=== PATIENT | male | born 1950 | race Caucasian/White ===

== ENCOUNTER 2017-08-23 10:00 | Inpatient (IN) | payer BC ==
[~2017-08-23] VITALS: Ht 175.3 cm; Wt 102.8 kg
[~2017-08-23 10:00] MED LIST: AMLO5TAB2 PO; FURO40TA4 PO; ISOS60TA24 PO; LISI40TA PO; METO-159 PO
[2017-08-23] MEDS ORDERED: SODIUM CHLORIDE 0.9% 1,000 ML IV ONE (10:23)
[2017-08-23 11:08] LABS: Basophils # (auto) 0.1 uL; Basophils % (auto) 0.6 % (0.0-2.0); Eosinophils # (auto) 0.3 uL; Hematocrit 35.5 % (41.0-53.0); Hemoglobin 11.7 g/dL (13.5-17.5); Lymphocytes # (auto) 2.4 uL; Lymphocytes % (auto) 18.2 % (10.0-50.0); Mean Corpuscular Hemoglobin 32.3 pg (28.0-32.0); Monocytes # (auto) 0.7 uL; Monocytes % (auto) 5.5 % (0.0-12.0); Neutrophils # (auto) 9.7 uL; Neutrophils % (auto) 73.7 % (37.0-80.0); Platelet Count (auto) 231 10^3/uL (140-450); Red Blood Cells 3.62 10^6/uL (4.5-5.90); Red Cell Distribution Width 15.1 % (11.8-14.3); White Blood Cell 13.2 10^3/uL (4.4-10.8)
[2017-08-23 11:21] LABS: INR 0.91 (0.9-1.15); Partial Thromboplastin Time 24.6 sec (22.64-33.71); Prothrombin Time 9.9 sec (9.37-12.3)
[2017-08-23 11:36] LABS: Albumin 3.5 g/dL (3.4-5.0); BUN/Creatinine Ratio 35.7; Bilirubin, Total 0.3 mg/dL (0.2-1.0); Calcium 8.5 mg/dL (8.5-10.1); Magnesium 2.7 mg/dL (1.6-2.6); Potassium 3.8 mmol/L (3.5-5.1); Total Protein 6.6 g/dL (6.4-8.2)
[2017-08-23] MEDS ORDERED: ALUM & MAG HYDROX-SIMETH LIQ(MAALOX) 30 ML PO ONE (12:45)
[2017-08-23] MEDS ORDERED: ONDANSETRON HCL 4 MG/2 ML VIAL IV PRN (12:45)
[2017-08-23] MEDS ORDERED: MORPHINE SULF INJ 2 MG/ML SYRINGE 1ML IV PRN (12:45)
[2017-08-23] MEDS ORDERED: MORPHINE SULFATE 4 MG/ML SYR/VIAL IV PRN ×3 (12:45→15:15)
[2017-08-23] MEDS ORDERED: NITROGLYCERIN 0.4 MG SL TAB SL PRN ×3 (12:45)
[2017-08-23] MEDS ORDERED: ZOLPIDEM TARTRATE 5 MG TAB PO PRN (12:45)
[2017-08-23] MEDS ORDERED: LORazepam 0.5 MG TAB PO PRN (12:45)
[2017-08-23] MEDS ORDERED: ACETAMINOPHEN 325 MG TAB PO PRN (12:45)
[2017-08-23] MEDS ORDERED: LISINOPRIL 20 MG TAB PO ONE (13:15)
[2017-08-23 13:22] LABS: Urine Bacteria NONE SEEN /hpf (None Seen); Urine Blood Negative /uL (Negative); Urine Specific Gravity 1.007 (1.001-1.035); Urine WBC <1 /hpf (0 - 3)
[2017-08-23] MEDS: SODIUM CHLOR 0.9% PF (SALINE LOCK) 10ML VIAL IV SCH ×2 (13:27→22:27)
[2017-08-23] MEDS ORDERED: SODIUM CHLOR 0.9% PF (SALINE LOCK) 10ML VIAL IV SCH (14:00)
[2017-08-23] MEDS ORDERED: CARVEDILOL 3.125 MG TAB PO SCH (22:00)
[2017-08-23] MEDS: FUROSEMIDE 20 MG TAB PO SCH (22:33)
[2017-08-23] MEDS: PRAVASTATIN SODIUM 20 MG TAB PO SCH (22:33)
[2017-08-23] MEDS: CARVEDILOL 3.125 MG TAB PO SCH (22:39)
[2017-08-24 05:50] LABS: Hematocrit 32.8 % (41.0-53.0); Hemoglobin 11.2 g/dL (13.5-17.5); Mean Corpuscular Hemoglobin 33.2 pg (28.0-32.0); Mean Corpuscular Hgb Conc. 34.1 g/dL (32.0-36.0); Mean Corpuscular Volume 97.2 fL (80.0-100.0); Platelet Count (auto) 194 10^3/uL (140-450); Red Blood Cells 3.38 10^6/uL (4.5-5.90); Red Cell Distribution Width 15.6 % (11.8-14.3)
[2017-08-24 06:01] LABS: Blast Cells 0; Metamyelocytes % 0; Myelocytes % 0; Promyelocytes % 0; Reactive Lymphocytes 0
[2017-08-24 06:09] LABS: Albumin 3.3 g/dL (3.4-5.0); Calcium 8.7 mg/dL (8.5-10.1); Magnesium 2.5 mg/dL (1.6-2.6)
[2017-08-24 06:16] LABS: Bilirubin, Total 0.5 mg/dL (0.2-1.0); Total Protein 5.8 g/dL (6.4-8.2)
[2017-08-24] MEDS: SODIUM CHLOR 0.9% PF (SALINE LOCK) 10ML VIAL IV SCH ×3 (06:29→22:00)
[2017-08-24 06:38] LABS: Band Neutrophils % (manual) 2; Basophils % (manual) 1 (0.0-2.0); Eosinophils % (manual) 2 (0-7); Lymphocytes % (manual) 26 (10.0-50.0); Monocytes % (manual) 3 (0-12)
[2017-08-24] MEDS: LEVOTHYROXINE SODIUM 50 MCG TAB PO SCH (07:04)
[2017-08-24] MEDS ORDERED: ENOXAPARIN SOD 100 MG/1 ML SYRINGE SC ONE (08:00)
[2017-08-24] MEDS: DOCUSATE SOD 100 MG CAP PO SCH (10:30)
[2017-08-24] MEDS: CARVEDILOL 3.125 MG TAB PO SCH ×2 (10:42→22:00)
[2017-08-24] MEDS: FUROSEMIDE 40 MG TAB PO SCH (10:43)
[2017-08-24] MEDS: LISINOPRIL 20 MG TAB PO SCH (10:43)
[2017-08-24] MEDS: ASPirin-EC 81 mg tab PO SCH (10:43)
[2017-08-24] MEDS: PANTOPRAZOLE 40 MG/10 ML VIAL IV SCH ×2 (12:21→22:00)
[2017-08-24 13:18] LABS: Basophils # (auto) 0.1 uL; Basophils % (auto) 0.5 % (0.0-2.0); Eosinophils # (auto) 0.2 uL; Eosinophils % (auto) 1.9 % (0.0-7.0); Hematocrit 33.7 % (41.0-53.0); Hemoglobin 11.4 g/dL (13.5-17.5); Lymphocytes # (auto) 2.5 uL; Lymphocytes % (auto) 23.1 % (10.0-50.0); Mean Corpuscular Hemoglobin 32.8 pg (28.0-32.0); Mean Corpuscular Hgb Conc. 33.9 g/dL (32.0-36.0); Mean Corpuscular Volume 96.6 fL (80.0-100.0); Monocytes # (auto) 0.6 uL; Neutrophils # (auto) 7.3 uL; Neutrophils % (auto) 68.5 % (37.0-80.0); Platelet Count (auto) 214 10^3/uL (140-450); Red Blood Cells 3.49 10^6/uL (4.5-5.90); Red Cell Distribution Width 15.8 % (11.8-14.3); White Blood Cell 10.7 10^3/uL (4.4-10.8)
[2017-08-24 18:06] VITALS: BP 109/59
[2017-08-24] MEDS ORDERED: HEPARIN DRIP/D5W 100UNITS/ML 250 ML IV SCH (18:45)
[2017-08-24 18:58] LABS: Basophils # (auto) 0.1 uL; Basophils % (auto) 0.7 % (0.0-2.0); Eosinophils # (auto) 0.2 uL; Eosinophils % (auto) 2.2 % (0.0-7.0); Hematocrit 34.7 % (41.0-53.0); Hemoglobin 11.7 g/dL (13.5-17.5); Lymphocytes # (auto) 2.5 uL; Lymphocytes % (auto) 24.3 % (10.0-50.0); Mean Corpuscular Hgb Conc. 33.9 g/dL (32.0-36.0); Mean Corpuscular Volume 97.6 fL (80.0-100.0); Monocytes # (auto) 0.8 uL; Monocytes % (auto) 7.5 % (0.0-12.0); Neutrophils # (auto) 6.8 uL; Neutrophils % (auto) 65.3 % (37.0-80.0); Nucleated Red Blood Cells % 0.1 %; Platelet Count (auto) 220 10^3/uL (140-450); Red Blood Cells 3.56 10^6/uL (4.5-5.90); Red Cell Distribution Width 16.1 % (11.8-14.3); White Blood Cell 10.5 10^3/uL (4.4-10.8)
[2017-08-24 19:06] LABS: INR 0.96 (0.9-1.15); Partial Thromboplastin Time 27.8 sec (22.64-33.71); Prothrombin Time 10.5 sec (9.37-12.3)
[2017-08-24 19:56] VITALS: BP 126/63
[2017-08-24] MEDS: PRAVASTATIN SODIUM 20 MG TAB PO SCH (22:00)
[2017-08-24] MEDS: FUROSEMIDE 20 MG TAB PO SCH (22:00)
[2017-08-25] VITALS (7 sets, daily range): BP systolic 89–136; BP diastolic 46–67
[2017-08-25 00:59] LABS: Basophils # (auto) 0.1 uL; Basophils % (auto) 0.6 % (0.0-2.0); Eosinophils # (auto) 0.3 uL; Eosinophils % (auto) 2.5 % (0.0-7.0); Hematocrit 30.5 % (41.0-53.0); Hemoglobin 10.3 g/dL (13.5-17.5); Lymphocytes # (auto) 3.1 uL; Lymphocytes % (auto) 26.8 % (10.0-50.0); Mean Corpuscular Hemoglobin 32.9 pg (28.0-32.0); Mean Corpuscular Hgb Conc. 33.6 g/dL (32.0-36.0); Mean Corpuscular Volume 97.7 fL (80.0-100.0); Monocytes # (auto) 0.7 uL; Monocytes % (auto) 6.3 % (0.0-12.0); Neutrophils # (auto) 7.4 uL; Neutrophils % (auto) 63.8 % (37.0-80.0); Nucleated Red Blood Cells % 0.1 %; Platelet Count (auto) 190 10^3/uL (140-450); Red Blood Cells 3.12 10^6/uL (4.5-5.90); Red Cell Distribution Width 15.5 % (11.8-14.3); White Blood Cell 11.6 10^3/uL (4.4-10.8)
[2017-08-25 01:11] LABS: Partial Thromboplastin Time 42.9 sec (22.64-33.71); Prothrombin Time 10.9 sec (9.37-12.3)
[2017-08-25] MEDS ORDERED: LISI-275 PO (04:08)
[2017-08-25] MEDS ORDERED: ALLO300T2 PO (04:08)
[2017-08-25] MEDS ORDERED: LEVO50TA7 PO (04:08)
[2017-08-25] MEDS ORDERED: CLOP75TA28 PO (04:08)
[2017-08-25] MEDS ORDERED: CARV3.1240 PO (04:08)
[2017-08-25] MEDS ORDERED: FURO40TA4 PO (04:08)
[2017-08-25] MEDS ORDERED: PRAV20TA3 PO (04:08)
[2017-08-25 05:41] LABS: Basophils # (auto) 0.1 uL; Basophils % (auto) 0.6 % (0.0-2.0); Eosinophils # (auto) 0.4 uL; Eosinophils % (auto) 3.4 % (0.0-7.0); Hematocrit 30.9 % (41.0-53.0); Hemoglobin 10.6 g/dL (13.5-17.5); Lymphocytes % (auto) 27.7 % (10.0-50.0); Mean Corpuscular Hemoglobin 33.3 pg (28.0-32.0); Mean Corpuscular Hgb Conc. 34.1 g/dL (32.0-36.0); Mean Corpuscular Volume 97.5 fL (80.0-100.0); Monocytes # (auto) 0.9 uL; Monocytes % (auto) 8.5 % (0.0-12.0); Neutrophils # (auto) 6.5 uL; Neutrophils % (auto) 59.8 % (37.0-80.0); Platelet Count (auto) 193 10^3/uL (140-450); Red Blood Cells 3.17 10^6/uL (4.5-5.90); Red Cell Distribution Width 15.7 % (11.8-14.3); White Blood Cell 10.9 10^3/uL (4.4-10.8)
[2017-08-25] MEDS: SODIUM CHLOR 0.9% PF (SALINE LOCK) 10ML VIAL IV SCH ×3 (05:50→21:54)
[2017-08-25 05:59] LABS: BUN/Creatinine Ratio 21.3; Calcium 8.6 mg/dL (8.5-10.1)
[2017-08-25] MEDS: LEVOTHYROXINE SODIUM 50 MCG TAB PO SCH (06:36)
[2017-08-25 09:34] LABS: INR 0.98 (0.9-1.15); Partial Thromboplastin Time 30.3 sec (22.64-33.71); Prothrombin Time 10.7 sec (9.37-12.3)
[2017-08-25] MEDS: DOCUSATE SOD 100 MG CAP PO SCH (10:00)
[2017-08-25] MEDS: CARVEDILOL 3.125 MG TAB PO SCH ×2 (10:00→21:56)
[2017-08-25] MEDS ORDERED: fentaNYL CITRATE 100 MCG/2 ML VL ONE (11:10)
[2017-08-25] MEDS ORDERED: MIDAZOLAM HCL 1MG/1ML-2 ML VIAL ONE (11:10)
[2017-08-25] MEDS ORDERED: SODIUM CHLORIDE LOCK 10 ML ONE (11:10)
[2017-08-25] MEDS ORDERED: PROPOFOL 10 MG/ML 20 ML IV ONE (11:10)
[2017-08-25] MEDS ORDERED: ONDANSETRON HCL 4 MG/2 ML VIAL ONE (11:10)
[2017-08-25] MEDS ORDERED: METOCLOPRAMIDE HCL 5MG/ml INJ 2ml VIAL IV ONE (11:45)
[2017-08-25] MEDS ORDERED: MORPHINE SULFATE 4 MG/ML SYR/VIAL IV ONE (12:00)
[2017-08-25] MEDS ORDERED: SODIUM CHLORIDE 0.9% 1,000 ML IV ONE (12:45)
[2017-08-25] MEDS: FUROSEMIDE 40 MG TAB PO SCH (13:40)
[2017-08-25] MEDS: SULFAMETHOX W/TRIMETH(800/160MG) DS TAB PO SCH ×2 (13:40→21:54)
[2017-08-25] MEDS: ASPirin-EC 81 mg tab PO SCH (13:41)
[2017-08-25] MEDS: SODIUM CHLORIDE 0.9% 500 ML IV SCH (14:00)
[2017-08-25 14:06] LABS: Basophils # (auto) 0.1 uL; Basophils % (auto) 0.6 % (0.0-2.0); Eosinophils # (auto) 0.2 uL; Eosinophils % (auto) 2.4 % (0.0-7.0); Hemoglobin 10.7 g/dL (13.5-17.5); Lymphocytes # (auto) 2.4 uL; Lymphocytes % (auto) 25.2 % (10.0-50.0); Mean Corpuscular Hemoglobin 32.7 pg (28.0-32.0); Mean Corpuscular Hgb Conc. 33.5 g/dL (32.0-36.0); Mean Corpuscular Volume 97.8 fL (80.0-100.0); Monocytes # (auto) 0.5 uL; Monocytes % (auto) 5.2 % (0.0-12.0); Neutrophils # (auto) 6.3 uL; Neutrophils % (auto) 66.6 % (37.0-80.0); Platelet Count (auto) 185 10^3/uL (140-450); Red Blood Cells 3.27 10^6/uL (4.5-5.90); Red Cell Distribution Width 15.4 % (11.8-14.3); White Blood Cell 9.5 10^3/uL (4.4-10.8)
[2017-08-25] MEDS ORDERED: OPTISON 3ml Vial for INJ IV ONE (14:49)
[2017-08-25] MEDS: LISINOPRIL 20 MG TAB PO SCH (15:33)
[2017-08-25] MEDS: ACETYLCYSTEINE ORAL for CIN 20%(200MG/ML) 4ML PO SCH ×2 (15:45→22:05)
[2017-08-25] MEDS: PRAVASTATIN SODIUM 20 MG TAB PO SCH (21:55)
[2017-08-25] MEDS: FUROSEMIDE 20 MG TAB PO SCH (21:55)
[2017-08-25] MEDS: PANTOPRAZOLE 40 MG TAB PO SCH (22:06)
[2017-08-26 03:52] VITALS: BP 132/75
[2017-08-26 05:21] LABS: Basophils # (auto) 0 uL; Basophils % (auto) 0.4 % (0.0-2.0); Eosinophils # (auto) 0.3 uL; Eosinophils % (auto) 3.4 % (0.0-7.0); Hematocrit 32.6 % (41.0-53.0); Hemoglobin 11.2 g/dL (13.5-17.5); Lymphocytes # (auto) 2.3 uL; Lymphocytes % (auto) 24.5 % (10.0-50.0); Mean Corpuscular Hemoglobin 33.1 pg (28.0-32.0); Mean Corpuscular Hgb Conc. 34.2 g/dL (32.0-36.0); Mean Corpuscular Volume 96.8 fL (80.0-100.0); Monocytes # (auto) 0.7 uL; Monocytes % (auto) 7.3 % (0.0-12.0); Neutrophils # (auto) 6.1 uL; Neutrophils % (auto) 64.4 % (37.0-80.0); Nucleated Red Blood Cells % 0.1 %; Platelet Count (auto) 186 10^3/uL (140-450); Red Blood Cells 3.37 10^6/uL (4.5-5.90); Red Cell Distribution Width 15.7 % (11.8-14.3); White Blood Cell 9.5 10^3/uL (4.4-10.8)
[2017-08-26 05:40] LABS: Calcium 8.6 mg/dL (8.5-10.1); Magnesium 2.3 mg/dL (1.6-2.6); Potassium 3.6 mmol/L (3.5-5.1)
[2017-08-26] MEDS: SODIUM CHLOR 0.9% PF (SALINE LOCK) 10ML VIAL IV SCH ×3 (06:04→21:42)
[2017-08-26] MEDS: LEVOTHYROXINE SODIUM 50 MCG TAB PO SCH (06:27)
[2017-08-26] MEDS ORDERED: IODIXANOL 320MG/ML 100ML BTL IV ONE (07:14)
[2017-08-26] MEDS ORDERED: LIDOCAINE 2%HCL (LOCAL ANESTH.) INJ 20ML MDV ONE (07:14)
[2017-08-26] MEDS ORDERED: MIDAZOLAM HCL 1MG/1ML-2 ML VIAL ONE (08:05)
[2017-08-26] MEDS ORDERED: fentaNYL CITRATE 100 MCG/2 ML VL ONE (08:05)
[2017-08-26] MEDS ORDERED: SODIUM CHL 0.9% 50 ML ONE ×3 (08:05→08:47)
[2017-08-26] MEDS ORDERED: VERAPAMIL 2.5MG/ML INJ 2ML VIAL IV ONE (08:06)
[2017-08-26] MEDS ORDERED: ANGIOMAX 250 MG VIAL IV ONE ×2 (08:07→08:47)
[2017-08-26] MEDS ORDERED: EPINEPHrine HCL 1 MG/10 ML SYRG ONE (08:34)
[2017-08-26] MEDS ORDERED: ATROPINE SULF 0.5 MG/5ML SYR ONE (08:34)
[2017-08-26] MEDS ORDERED: EPTIFIBATIDE INJ (2MG/ML) 10ML VIAL IV ONE (08:36)
[2017-08-26] MEDS ORDERED: TICAGRELOR 90 MG TAB ONE (08:44)
[2017-08-26] MEDS ORDERED: ASPirin 325 MG TAB ONE (08:48)
[2017-08-26 09:28] VITALS: BP 137/79
[2017-08-26] MEDS: SODIUM CHLORIDE 0.9% 500 ML IV SCH ×3 (09:45→21:42)
[2017-08-26] MEDS: ASPirin-EC 81 mg tab PO SCH (09:58)
[2017-08-26] MEDS ORDERED: ASPirin 81 mg TAB PO SCH (10:00)
[2017-08-26] MEDS: LISINOPRIL 20 MG TAB PO SCH (10:04)
[2017-08-26] MEDS: CARVEDILOL 3.125 MG TAB PO SCH ×2 (10:05→21:43)
[2017-08-26] MEDS: SULFAMETHOX W/TRIMETH(800/160MG) DS TAB PO SCH ×2 (10:05→21:43)
[2017-08-26] MEDS: FUROSEMIDE 40 MG TAB PO SCH (10:05)
[2017-08-26] MEDS: DOCUSATE SOD 100 MG CAP PO SCH (10:06)
[2017-08-26] MEDS: PANTOPRAZOLE 40 MG TAB PO SCH ×2 (10:07→21:43)
[2017-08-26] MEDS: ACETYLCYSTEINE ORAL for CIN 20%(200MG/ML) 4ML PO SCH ×2 (11:13→21:44)
[2017-08-26 12:00] VITALS: BP 99/60
[2017-08-26 16:00] VITALS: BP 117/58
[2017-08-26] MEDS ORDERED: CLOPIDOGREL 300 MG TAB PO ONE (18:00)
[2017-08-26 19:48] VITALS: BP 103/60
[2017-08-26] MEDS: PRAVASTATIN SODIUM 20 MG TAB PO SCH (21:43)
[2017-08-26] MEDS: FUROSEMIDE 20 MG TAB PO SCH (21:45)
[2017-08-27] VITALS: BP 84/56
[2017-08-27 04:06] VITALS: BP 110/67
[2017-08-27 05:12] LABS: Basophils # (auto) 0 uL; Basophils % (auto) 0.3 % (0.0-2.0); Eosinophils # (auto) 0.3 uL; Eosinophils % (auto) 3.6 % (0.0-7.0); Hematocrit 31.2 % (41.0-53.0); Hemoglobin 10.3 g/dL (13.5-17.5); Lymphocytes # (auto) 1.6 uL; Mean Corpuscular Hemoglobin 32.7 pg (28.0-32.0); Mean Corpuscular Hgb Conc. 33.2 g/dL (32.0-36.0); Mean Corpuscular Volume 98.6 fL (80.0-100.0); Monocytes # (auto) 0.6 uL; Monocytes % (auto) 7.4 % (0.0-12.0); Neutrophils # (auto) 5.6 uL; Neutrophils % (auto) 68.7 % (37.0-80.0); Platelet Count (auto) 169 10^3/uL (140-450); Red Blood Cells 3.16 10^6/uL (4.5-5.90); White Blood Cell 8.2 10^3/uL (4.4-10.8)
[2017-08-27 05:34] LABS: BUN/Creatinine Ratio 15.9; Calcium 8.1 mg/dL (8.5-10.1); Magnesium 2.2 mg/dL (1.6-2.6); Potassium 3.7 mmol/L (3.5-5.1)
[2017-08-27] MEDS: SODIUM CHLORIDE 0.9% 500 ML IV SCH (05:46)
[2017-08-27] MEDS: SODIUM CHLOR 0.9% PF (SALINE LOCK) 10ML VIAL IV SCH ×3 (05:46→21:58)
[2017-08-27] MEDS: LEVOTHYROXINE SODIUM 50 MCG TAB PO SCH (06:35)
[2017-08-27 08:00] VITALS: BP 116/72
[2017-08-27] MEDS: ACETYLCYSTEINE ORAL for CIN 20%(200MG/ML) 4ML PO SCH (10:00)
[2017-08-27] MEDS: LISINOPRIL 20 MG TAB PO SCH (10:00)
[2017-08-27] MEDS: SULFAMETHOX W/TRIMETH(800/160MG) DS TAB PO SCH ×2 (11:10→21:58)
[2017-08-27] MEDS: FUROSEMIDE 40 MG TAB PO SCH (11:11)
[2017-08-27] MEDS: CLOPIDOGREL BISULFATE 75 MG TAB PO SCH (11:11)
[2017-08-27] MEDS: CARVEDILOL 3.125 MG TAB PO SCH ×2 (11:12→21:59)
[2017-08-27] MEDS: DOCUSATE SOD 100 MG CAP PO SCH ×2 (11:12→21:58)
[2017-08-27] MEDS: ASPirin-EC 81 mg tab PO SCH (11:12)
[2017-08-27] MEDS: PANTOPRAZOLE 40 MG TAB PO SCH ×2 (11:12→21:58)
[2017-08-27 12:00] VITALS: BP 102/67
[2017-08-27] MEDS ORDERED: hydrALAZINE HCL 20 MG/ML VL IV PRN (13:45)
[2017-08-27] MEDS ORDERED: POLYETHYLENE GLYCOL 17 GM PWDR PO PRN (14:00)
[2017-08-27 16:00] VITALS: BP 108/65
[2017-08-27 20:00] VITALS: BP 117/68
[2017-08-27] MEDS: PRAVASTATIN SODIUM 20 MG TAB PO SCH (21:58)
[2017-08-28 06:00] LABS: Basophils # (auto) 0 uL; Basophils % (auto) 0.4 % (0.0-2.0); Eosinophils # (auto) 0.3 uL; Eosinophils % (auto) 4.1 % (0.0-7.0); Hematocrit 28.9 % (41.0-53.0); Hemoglobin 9.9 g/dL (13.5-17.5); Lymphocytes # (auto) 1.6 uL; Lymphocytes % (auto) 21.9 % (10.0-50.0); Mean Corpuscular Hemoglobin 33.4 pg (28.0-32.0); Mean Corpuscular Hgb Conc. 34.3 g/dL (32.0-36.0); Mean Corpuscular Volume 97.4 fL (80.0-100.0); Monocytes # (auto) 0.6 uL; Monocytes % (auto) 8.6 % (0.0-12.0); Neutrophils # (auto) 4.7 uL; Nucleated Red Blood Cells % 0.1 %; Platelet Count (auto) 163 10^3/uL (140-450); Red Blood Cells 2.97 10^6/uL (4.5-5.90); Red Cell Distribution Width 16.3 % (11.8-14.3); White Blood Cell 7.2 10^3/uL (4.4-10.8)
[2017-08-28 06:06] LABS: BUN/Creatinine Ratio 13.5; Calcium 8.5 mg/dL (8.5-10.1); Potassium 4.9 mmol/L (3.5-5.1)
[2017-08-28] MEDS: SODIUM CHLOR 0.9% PF (SALINE LOCK) 10ML VIAL IV SCH ×2 (06:11→09:48)
[2017-08-28] MEDS: DOCUSATE SOD 100 MG CAP PO SCH ×3 (06:11→22:00)
[2017-08-28] MEDS: LEVOTHYROXINE SODIUM 50 MCG TAB PO SCH (06:36)
[2017-08-28 08:00] VITALS: BP 122/65
[2017-08-28] MEDS: SULFAMETHOX W/TRIMETH(800/160MG) DS TAB PO SCH ×2 (09:47→22:03)
[2017-08-28] MEDS: FUROSEMIDE 40 MG TAB PO SCH (09:48)
[2017-08-28] MEDS: PANTOPRAZOLE 40 MG TAB PO SCH ×2 (09:48→22:03)
[2017-08-28] MEDS: ASPirin-EC 81 mg tab PO SCH (09:48)
[2017-08-28] MEDS: CARVEDILOL 3.125 MG TAB PO SCH ×2 (09:48→22:03)
[2017-08-28] MEDS: CLOPIDOGREL BISULFATE 75 MG TAB PO SCH (09:48)
[2017-08-28] MEDS: LISINOPRIL 20 MG TAB PO SCH (09:48)
[2017-08-28 13:00] VITALS: BP 102/69
[2017-08-28] MEDS ORDERED: LACTULOSE 20Gm/30ML SOLN PO ONE (13:00)
[2017-08-28] MEDS: MILK OF MAGNESIA 30ML SUSP PO SCH (13:00)
[2017-08-28 16:47] VITALS: BP 117/66
[2017-08-28] MEDS: PRAVASTATIN SODIUM 20 MG TAB PO SCH (22:03)
[2017-08-29 04:27] VITALS: BP 102/63
[2017-08-29] MEDS: DOCUSATE SOD 100 MG CAP PO SCH ×3 (06:00→22:00)
[2017-08-29] MEDS: LEVOTHYROXINE SODIUM 50 MCG TAB PO SCH (06:55)
[2017-08-29] MEDS: SODIUM CHLOR 0.9% PF (SALINE LOCK) 10ML VIAL IV SCH ×4 (06:56→21:56)
[2017-08-29 08:00] VITALS: BP 95/63
[2017-08-29] MEDS: MILK OF MAGNESIA 30ML SUSP PO SCH (10:00)
[2017-08-29] MEDS: ASPirin-EC 81 mg tab PO SCH (10:14)
[2017-08-29] MEDS: CLOPIDOGREL BISULFATE 75 MG TAB PO SCH (10:14)
[2017-08-29] MEDS: PANTOPRAZOLE 40 MG TAB PO SCH ×2 (10:15→21:56)
[2017-08-29] MEDS: CARVEDILOL 3.125 MG TAB PO SCH ×2 (10:16→21:55)
[2017-08-29] MEDS: FUROSEMIDE 40 MG TAB PO SCH (10:17)
[2017-08-29] MEDS: SULFAMETHOX W/TRIMETH(800/160MG) DS TAB PO SCH ×2 (10:18→22:02)
[2017-08-29] MEDS: LISINOPRIL 20 MG TAB PO SCH (10:18)
[2017-08-29 12:00] VITALS: BP 112/54
[2017-08-29 16:56] VITALS: BP 103/69
[2017-08-29] MEDS ORDERED: SODIUM CHLORIDE 0.9% 500 ML IV ONE (17:46)
[2017-08-29] MEDS ORDERED: SODIUM CHLORIDE 0.9% 1,000 ML IV SCH (17:46)
[2017-08-29] MEDS: PRAVASTATIN SODIUM 20 MG TAB PO SCH (21:54)
[2017-08-29 22:11] VITALS: BP 102/61
[2017-08-30] MEDS: SODIUM CHLORIDE 0.9% 1,000 ML IV SCH ×2 (00:31→10:00)
[2017-08-30 05:28] VITALS: BP 111/66
[2017-08-30] MEDS: DOCUSATE SOD 100 MG CAP PO SCH ×3 (06:00→22:37)
[2017-08-30] MEDS: SODIUM CHLOR 0.9% PF (SALINE LOCK) 10ML VIAL IV SCH ×3 (06:07→22:40)
[2017-08-30] MEDS: LEVOTHYROXINE SODIUM 50 MCG TAB PO SCH (06:09)
[2017-08-30 06:18] LABS: Basophils # (auto) 0.1 uL; Basophils % (auto) 0.8 % (0.0-2.0); Eosinophils # (auto) 0.3 uL; Eosinophils % (auto) 4.7 % (0.0-7.0); Hematocrit 31.1 % (41.0-53.0); Hemoglobin 10.5 g/dL (13.5-17.5); Lymphocytes # (auto) 1.5 uL; Lymphocytes % (auto) 21.3 % (10.0-50.0); Mean Corpuscular Hemoglobin 32.9 pg (28.0-32.0); Mean Corpuscular Hgb Conc. 33.6 g/dL (32.0-36.0); Mean Corpuscular Volume 97.7 fL (80.0-100.0); Monocytes # (auto) 0.6 uL; Monocytes % (auto) 8.1 % (0.0-12.0); Neutrophils # (auto) 4.6 uL; Neutrophils % (auto) 65.1 % (37.0-80.0); Platelet Count (auto) 193 10^3/uL (140-450); Red Blood Cells 3.18 10^6/uL (4.5-5.90); Red Cell Distribution Width 15.9 % (11.8-14.3); White Blood Cell 7.1 10^3/uL (4.4-10.8)
[2017-08-30 06:33] LABS: INR 0.94 (0.9-1.15); Partial Thromboplastin Time 25.3 sec (22.64-33.71); Prothrombin Time 10.2 sec (9.37-12.3)
[2017-08-30 06:37] LABS: Calcium 8.3 mg/dL (8.5-10.1); Magnesium 2.6 mg/dL (1.6-2.6); Potassium 4.7 mmol/L (3.5-5.1)
[2017-08-30 06:39] LABS: BUN/Creatinine Ratio 17.2
[2017-08-30] MEDS ORDERED: LIDOCAINE 2%HCL (LOCAL ANESTH.) INJ 20ML MDV ONE (07:13)
[2017-08-30] MEDS ORDERED: IODIXANOL 320MG/ML 100ML BTL IV ONE ×2 (07:13→07:43)
[2017-08-30] MEDS ORDERED: fentaNYL CITRATE 100 MCG/2 ML VL ONE (07:31)
[2017-08-30] MEDS ORDERED: ANGIOMAX 250 MG VIAL IV ONE (07:31)
[2017-08-30] MEDS ORDERED: MIDAZOLAM HCL 1MG/1ML-2 ML VIAL ONE (07:31)
[2017-08-30] MEDS ORDERED: SODIUM CHL 0.9% 50 ML ONE (07:31)
[2017-08-30 08:01] VITALS: BP 104/60
[2017-08-30] MEDS ORDERED: ceFAZolin 1GM/50ML 50 ML IV ONE (08:24)
[2017-08-30] MEDS: CLOPIDOGREL BISULFATE 75 MG TAB PO SCH (08:44)
[2017-08-30] MEDS: ASPirin-EC 81 mg tab PO SCH (08:53)
[2017-08-30] MEDS ORDERED: ASPirin 81 mg TAB PO ONE (09:00)
[2017-08-30] MEDS: FUROSEMIDE 40 MG TAB PO SCH (10:00)
[2017-08-30] MEDS: LISINOPRIL 20 MG TAB PO SCH (10:00)
[2017-08-30] MEDS ORDERED: MILK OF MAGNESIA 30ML SUSP PO PRN (10:00)
[2017-08-30 12:00] VITALS: BP 117/72
[2017-08-30] MEDS: PANTOPRAZOLE 40 MG TAB PO SCH ×2 (12:24→22:37)
[2017-08-30] MEDS: CARVEDILOL 3.125 MG TAB PO SCH ×2 (12:24→22:38)
[2017-08-30] MEDS: SULFAMETHOX W/TRIMETH(800/160MG) DS TAB PO SCH ×2 (12:24→22:37)
[2017-08-30] MEDS ORDERED: SODIUM CHLORIDE 0.9% 500 ML IV ONE ×2 (17:00)
[2017-08-30] MEDS ORDERED: ZOLPIDEM TARTRATE 5 MG TAB PO PRN (17:00)
[2017-08-30] MEDS ORDERED: LORazepam 0.5 MG TAB PO PRN (17:00)
[2017-08-30 17:01] VITALS: BP 104/61
[2017-08-30] MEDS ORDERED: FURO40TA4 PO (17:07)
[2017-08-30] MEDS ORDERED: PRAV20TA3 PO (17:07)
[2017-08-30] MEDS ORDERED: PANT40T PO (17:07)
[2017-08-30] MEDS ORDERED: CLOP75TA28 PO (17:07)
[2017-08-30] MEDS ORDERED: MOMLQ PO (17:07)
[2017-08-30] MEDS ORDERED: ASP81EC PO (17:07)
[2017-08-30] MEDS ORDERED: SULF-92 PO (17:07)
[2017-08-30 22:00] VITALS: BP 101/57
[2017-08-30] MEDS: PRAVASTATIN SODIUM 20 MG TAB PO SCH (22:37)
[2017-08-31 05:14] VITALS: BP 115/68
[2017-08-31 06:00] LABS: Basophils # (auto) 0 uL; Basophils % (auto) 0.5 % (0.0-2.0); Eosinophils # (auto) 0.3 uL; Eosinophils % (auto) 3.8 % (0.0-7.0); Hematocrit 29.5 % (41.0-53.0); Lymphocytes # (auto) 1.3 uL; Lymphocytes % (auto) 18.1 % (10.0-50.0); Mean Corpuscular Hemoglobin 33.2 pg (28.0-32.0); Mean Corpuscular Volume 97.6 fL (80.0-100.0); Monocytes # (auto) 0.6 uL; Neutrophils # (auto) 4.8 uL; Neutrophils % (auto) 68.6 % (37.0-80.0); Nucleated Red Blood Cells % 0.1 %; Platelet Count (auto) 181 10^3/uL (140-450); Red Blood Cells 3.02 10^6/uL (4.5-5.90); Red Cell Distribution Width 16.1 % (11.8-14.3)
[2017-08-31 06:11] LABS: BUN/Creatinine Ratio 15.8; Calcium 8.3 mg/dL (8.5-10.1); Potassium 4.8 mmol/L (3.5-5.1)
[2017-08-31] MEDS: DOCUSATE SOD 100 MG CAP PO SCH (06:23)
[2017-08-31] MEDS: LEVOTHYROXINE SODIUM 50 MCG TAB PO SCH (06:23)
[2017-08-31] MEDS: SODIUM CHLOR 0.9% PF (SALINE LOCK) 10ML VIAL IV SCH (06:25)
[2017-08-31 08:00] VITALS: BP 112/64
[2017-08-31] MEDS: LISINOPRIL 20 MG TAB PO SCH (08:57)
[2017-08-31] MEDS: ASPirin-EC 81 mg tab PO SCH (09:37)
[2017-08-31] MEDS: PANTOPRAZOLE 40 MG TAB PO SCH (09:38)
[2017-08-31] MEDS: SULFAMETHOX W/TRIMETH(800/160MG) DS TAB PO SCH (09:38)
[2017-08-31] MEDS: CLOPIDOGREL BISULFATE 75 MG TAB PO SCH (09:38)
[2017-08-31] MEDS: FUROSEMIDE 40 MG TAB PO SCH (09:40)
[2017-08-31] MEDS: CARVEDILOL 3.125 MG TAB PO SCH (09:40)
[2017-08-31 10:53] VITALS: BP 112/64
[2017-08-31 12:10] VITALS: BP 146/80
== END 2017-08-31 12:30 | disposition home health service (06) | DRG 246 ==
LOC: ER 10:00 → TELE 10:01 → DOU IN ICU 08-24 17:00 → CENTRAL 08-28 11:22 → TELE-CENTR 08-29 02:01
PROVIDERS: ADMIT Internal Medicine; ATTEND Internal Medicine
PROC: 027035Z Dilation of Coronary Artery, One Artery with Two Drug-eluting Intraluminal Devices, Percutaneous Approach (ICD-10-PCS; 2017-08-23)
PROC: 0DJ08ZZ Inspection of Upper Intestinal Tract, Via Natural or Artificial Opening Endoscopic (ICD-10-PCS; 2017-08-25)
PROC: 027035Z Dilation of Coronary Artery, One Artery with Two Drug-eluting Intraluminal Devices, Percutaneous Approach (ICD-10-PCS; principal; 2017-08-26)
PROC: 4A023N7 Measurement of Cardiac Sampling and Pressure, Left Heart, Percutaneous Approach (ICD-10-PCS; 2017-08-26)
PROC: B2111ZZ Fluoroscopy of Multiple Coronary Arteries using Low Osmolar Contrast (ICD-10-PCS; 2017-08-26)
PROC: 4A023N7 Measurement of Cardiac Sampling and Pressure, Left Heart, Percutaneous Approach (ICD-10-PCS; 2017-08-30)
PROC: B2111ZZ Fluoroscopy of Multiple Coronary Arteries using Low Osmolar Contrast (ICD-10-PCS; 2017-08-30)
PROC: B41F1ZZ Fluoroscopy of Right Lower Extremity Arteries using Low Osmolar Contrast (ICD-10-PCS; 2017-08-30)
DX: I21.4 Non-ST elevation (NSTEMI) myocardial infarction (principal); I50.43 Acute on chronic combined systolic (congestive) and diastolic (congestive) heart failure; I42.9 Cardiomyopathy, unspecified; K29.71 Gastritis, unspecified, with bleeding; E66.01 Morbid (severe) obesity due to excess calories; E83.41 Hypermagnesemia; N18.3 Chronic kidney disease, stage 3 (moderate); I13.0 Hypertensive heart and chronic kidney disease with heart failure and stage 1 through stage 4 chronic kidney disease, or unspecified chronic kidney disease; N39.0 Urinary tract infection, site not specified; B95.7 Other staphylococcus as the cause of diseases classified elsewhere; D63.8 Anemia in other chronic diseases classified elsewhere; E03.9 Hypothyroidism, unspecified; I25.119 Atherosclerotic heart disease of native coronary artery with unspecified angina pectoris; E78.5 Hyperlipidemia, unspecified; I25.2 Old myocardial infarction; I49.3 Ventricular premature depolarization; K59.09 Other constipation; M10.9 Gout, unspecified; Z68.37 Body mass index [BMI] 37.0-37.9, adult; Z79.02 Long term (current) use of antithrombotics/antiplatelets; Z79.82 Long term (current) use of aspirin; M19.90 Unspecified osteoarthritis, unspecified site; M54.9 Dorsalgia, unspecified; Z79.899 Other long term (current) drug therapy
CPT/HCPCS: 36415; 43235; 71045; 80048; 80053; 80061; 81001; 83735; 83880; 84484; 85007; 85025; 85027; 85610; 85730; 86850; 86900; 86901; 87081; 87086; 87088; 87186; 92928; 93005; 93306; 93458; 96360; 99152; 99153; 99291; C1874; C1887; C9113; J0461; J0690; J2250; J2405; J2704; Q9956; Q9967

== ENCOUNTER 2020-07-07 09:38 | Inpatient (IN) | payer BC ==
[~2020-07-07] VITALS: Ht 172.7 cm; Wt 144.0 kg
[~2020-07-07 09:38] MED LIST changes: +ALLO300T2 PO; -AMLO5TAB2 PO; +ASPI-394 PO; +CARV3.1240 PO; +CLOP75TA28 PO; -ISOS60TA24 PO; +LEVO50TA7 PO; +LISI-275 PO; -LISI40TA PO; -METO-159 PO; +MOMLQ PO; +PANT40T PO; +PRAV20TA3 PO; +SULF-92 PO
[2020-07-07] MEDS ORDERED: ACETAMINOPHEN 325 MG TAB PO ONE (10:30)
[2020-07-07 12:38] LABS: Basophils # (auto) 0 10 ^3/uL (0-0.2); Basophils % (auto) 0.1 % (0.0-2.0); Eosinophils # (auto) 0 10 ^3/uL (0-0.8); Hematocrit 40.4 % (41.0-53.0); Hemoglobin 13.6 g/dL (13.5-17.5); Lymphocytes # (auto) 0.4 10 ^3/uL (0.4-5.4); Lymphocytes % (auto) 5.7 % (10.0-50.0); Mean Corpuscular Hemoglobin 29.9 pg (28.0-32.0); Mean Corpuscular Hgb Conc. 33.7 g/dL (32.0-36.0); Mean Corpuscular Volume 88.7 fL (80.0-100.0); Monocytes # (auto) 0.2 10 ^3/uL (0-1.3); Monocytes % (auto) 3.3 % (0.0-12.0); Neutrophils # (auto) 5.8 10 ^3/uL (1.6-8.6); Neutrophils % (auto) 90.9 % (37.0-80.0); Nucleated Red Blood Cells % 0.1 %; Platelet Count (auto) 198 10^3/uL (140-450); Red Blood Cells 4.55 10^6/uL (4.5-5.90); Red Cell Distribution Width 16.2 % (11.8-14.3); White Blood Cell 6.4 10^3/uL (4.4-10.8)
[2020-07-07 12:54] LABS: INR 1.03 (0.9-1.15); Partial Thromboplastin Time 29.3 sec (23.0-31.2)
[2020-07-07 13:01] LABS: Albumin 2.4 g/dL (3.4-5.0); Calcium 7.9 mg/dL (8.5-10.1); Potassium 3.4 mmol/L (3.5-5.1)
[2020-07-07 13:06] LABS: BUN/Creatinine Ratio 18.6; Bilirubin, Total 0.8 mg/dL (0.2-1.0); Total Protein 6.2 g/dL (6.4-8.2)
[2020-07-07] MEDS ORDERED: levoFLOXacin 250 MG TAB PO ONE (19:45)
[2020-07-08] MEDS ORDERED: ONDANSETRON HCL 4 MG/2 ML VIAL IV PRN (00:30)
[2020-07-08] MEDS ORDERED: HYDROcodone-ACET 5/325MG TAB PO PRN (00:30)
[2020-07-08] MEDS ORDERED: ACETAMINOPHEN 500 MG TAB PO PRN (00:30)
[2020-07-08] MEDS ORDERED: SODIUM CHLORIDE 0.9% 1,000 ML IV SCH (00:30)
[2020-07-08] MEDS ORDERED: ACETAMINOPHEN 325 MG TAB PO PRN (00:30)
[2020-07-08] MEDS ORDERED: DOCUSATE SOD 100 MG CAP PO PRN (00:30)
[2020-07-08] MEDS: ALBUTEROL SULF HFA 90MCG INH 200DOSE IN SCH ×2 (06:00→22:00)
[2020-07-08] MEDS ORDERED: ENOXAPARIN SOD 40 MG/0.4 ML SYRINGE SC SCH (10:00)
[2020-07-08] MEDS: ZINC SULFATE 220mg CAP or TAB PO SCH (10:10)
[2020-07-08] MEDS: ASCORBIC ACID 1,000 MG TAB PO SCH (10:10)
[2020-07-08] MEDS: DOXYCYCLINE 100 MG TAB/CAP PO SCH ×2 (10:10→21:49)
[2020-07-08] MEDS: DexAMETHasone SOD PHOS 10MG/1ML VIAL INJ IV SCH (15:00)
[2020-07-08 17:00] VITALS: BP 119/67
[2020-07-08] MEDS ORDERED: CARV6.2551 PO (18:33)
[2020-07-08] MEDS: ENOXAPARIN SOD 150 MG/1 ML SYRINGE SC SCH (21:49)
[2020-07-09] VITALS: BP 124/68
[2020-07-09] MEDS: ALBUTEROL SULF HFA 90MCG INH 200DOSE IN SCH ×4 (06:00→19:25)
[2020-07-09 08:00] VITALS: BP 134/74
[2020-07-09 08:10] VITALS: BP 134/74
[2020-07-09 08:33] LABS: Basophils # (auto) 0 10 ^3/uL (0-0.2); Basophils % (auto) 0.3 % (0.0-2.0); Eosinophils # (auto) 0.1 10 ^3/uL (0-0.8); Eosinophils % (auto) 1.1 % (0.0-7.0); Hematocrit 39.1 % (41.0-53.0); Hemoglobin 13.4 g/dL (13.5-17.5); Lymphocytes % (auto) 18.7 % (10.0-50.0); Mean Corpuscular Hemoglobin 30.5 pg (28.0-32.0); Mean Corpuscular Hgb Conc. 34.3 g/dL (32.0-36.0); Mean Corpuscular Volume 88.8 fL (80.0-100.0); Monocytes # (auto) 0.4 10 ^3/uL (0-1.3); Monocytes % (auto) 6.9 % (0.0-12.0); Neutrophils # (auto) 3.7 10 ^3/uL (1.6-8.6); Platelet Count (auto) 208 10^3/uL (140-450); Red Blood Cells 4.41 10^6/uL (4.5-5.90); Red Cell Distribution Width 16.4 % (11.8-14.3); White Blood Cell 5.1 10^3/uL (4.4-10.8)
[2020-07-09 08:45] LABS: Albumin 2.2 g/dL (3.4-5.0); Calcium 8.5 mg/dL (8.5-10.1); Magnesium 2.5 mg/dL (1.6-2.6); Potassium 4.2 mmol/L (3.5-5.1)
[2020-07-09 08:49] LABS: BUN/Creatinine Ratio 23.3; Bilirubin, Total 0.7 mg/dL (0.2-1.0); Total Protein 6.1 g/dL (6.4-8.2)
[2020-07-09] MEDS: DexAMETHasone SOD PHOS 10MG/1ML VIAL INJ IV SCH (09:07)
[2020-07-09] MEDS: ENOXAPARIN SOD 150 MG/1 ML SYRINGE SC SCH (09:07)
[2020-07-09] MEDS: DOXYCYCLINE 100 MG TAB/CAP PO SCH ×2 (09:07→22:04)
[2020-07-09] MEDS: ASCORBIC ACID 1,000 MG TAB PO SCH (09:07)
[2020-07-09] MEDS: ZINC SULFATE 220mg CAP or TAB PO SCH (09:07)
[2020-07-09] MEDS ORDERED: MILK OF MAGNESIA 30ML SUSP PO PRN (13:15)
[2020-07-09 15:54] VITALS: BP 130/88
[2020-07-09] MEDS: APIXABAN 5 MG TAB PO SCH (22:04)
[2020-07-09 23:10] LABS: Urine Bacteria NONE SEEN /hpf (None Seen); Urine Blood TRACE /uL (Negative); Urine Specific Gravity 1.017 (1.001-1.035); Urine WBC <1 /hpf (0 - 3)
[2020-07-10] VITALS: BP 117/69
[2020-07-10] MEDS: ALBUTEROL SULF HFA 90MCG INH 200DOSE IN SCH ×2 (07:40→20:11)
[2020-07-10 08:00] VITALS: BP 126/71
[2020-07-10] MEDS: DexAMETHasone SOD PHOS 10MG/1ML VIAL INJ IV SCH (09:08)
[2020-07-10] MEDS: ASCORBIC ACID 1,000 MG TAB PO SCH (09:09)
[2020-07-10] MEDS: DOXYCYCLINE 100 MG TAB/CAP PO SCH ×2 (09:09→22:04)
[2020-07-10] MEDS: ZINC SULFATE 220mg CAP or TAB PO SCH (09:09)
[2020-07-10] MEDS: APIXABAN 5 MG TAB PO SCH ×2 (09:09→22:04)
[2020-07-10 16:00] VITALS: BP 135/71
[2020-07-11] VITALS: BP 119/69
[2020-07-11] MEDS: ALBUTEROL SULF HFA 90MCG INH 200DOSE IN SCH ×3 (06:15→20:07)
[2020-07-11 08:00] VITALS: BP 136/75
[2020-07-11] MEDS: ZINC SULFATE 220mg CAP or TAB PO SCH (09:50)
[2020-07-11] MEDS: APIXABAN 5 MG TAB PO SCH ×2 (09:50→22:13)
[2020-07-11] MEDS: DexAMETHasone SOD PHOS 10MG/1ML VIAL INJ IV SCH (09:50)
[2020-07-11] MEDS: ASCORBIC ACID 1,000 MG TAB PO SCH (09:51)
[2020-07-11] MEDS: DOXYCYCLINE 100 MG TAB/CAP PO SCH ×2 (09:51→22:14)
[2020-07-11] MEDS ORDERED: DexAMETHasone 4 MG TAB PO ONE (14:15)
[2020-07-11] MEDS ORDERED: SALINE 0.65 % NASAL SPRAY 45ML BOTTLE EACHNOSTRI PRN (14:30)
[2020-07-11 15:51] VITALS: BP 125/67
[2020-07-12] VITALS: BP 145/77
[2020-07-12 00:41] VITALS: BP 145/77
[2020-07-12 06:59] LABS: Basophils # (auto) 0 10 ^3/uL (0-0.2); Basophils % (auto) 0.5 % (0.0-2.0); Eosinophils # (auto) 0 10 ^3/uL (0-0.8); Eosinophils % (auto) 0.5 % (0.0-7.0); Hematocrit 38.7 % (41.0-53.0); Lymphocytes % (auto) 11.3 % (10.0-50.0); Mean Corpuscular Hemoglobin 29.9 pg (28.0-32.0); Mean Corpuscular Hgb Conc. 33.6 g/dL (32.0-36.0); Mean Corpuscular Volume 88.9 fL (80.0-100.0); Monocytes # (auto) 0.5 10 ^3/uL (0-1.3); Monocytes % (auto) 6.1 % (0.0-12.0); Neutrophils % (auto) 81.6 % (37.0-80.0); Platelet Count (auto) 311 10^3/uL (140-450); Red Blood Cells 4.35 10^6/uL (4.5-5.90); Red Cell Distribution Width 16.2 % (11.8-14.3); White Blood Cell 8.5 10^3/uL (4.4-10.8)
[2020-07-12 07:37] LABS: Potassium 5.1 mmol/L (3.5-5.1)
[2020-07-12 07:56] LABS: Albumin 2.3 g/dL (3.4-5.0); BUN/Creatinine Ratio 23.8; Bilirubin, Total 0.5 mg/dL (0.2-1.0); CRP High Sensitivity 1.52 mg/dL (< 0.3); Calcium 9.2 mg/dL (8.5-10.1); Total Protein 6.1 g/dL (6.4-8.2)
[2020-07-12 08:00] VITALS: BP 152/81
[2020-07-12] MEDS: ZINC SULFATE 220mg CAP or TAB PO SCH (09:04)
[2020-07-12] MEDS: APIXABAN 5 MG TAB PO SCH (09:05)
[2020-07-12] MEDS: ASCORBIC ACID 1,000 MG TAB PO SCH (09:06)
[2020-07-12] MEDS: DOXYCYCLINE 100 MG TAB/CAP PO SCH (09:06)
[2020-07-12] MEDS ORDERED: DexAMETHasone 4 MG TAB PO SCH (10:00)
[2020-07-12 16:00] VITALS: BP 159/87
[2020-07-12] MEDS: ALBUTEROL SULF HFA 90MCG INH 200DOSE IN SCH ×2 (16:11→16:12)
[2020-07-12] MEDS ORDERED: ATORVASTATIN 20 MG TAB PO SCH (22:00)
[2020-07-13] MEDS ORDERED: METOPROLOL SUCCINATE XL 50 MG TAB PO SCH (10:00)
[2020-07-16] MEDS ORDERED: APIXABAN 5 MG TAB PO SCH (22:00)
== END 2020-07-12 17:40 | disposition home health service (06) | DRG 177 ==
LOC: ER 09:38 → EDBD 09:38 → TELE 09:39 → TELE-WESTW 07-08 16:12
PROVIDERS: ADMIT Hospitalist; ATTEND Internal Medicine
DX: U07.1 COVID-19 (principal); J96.01 Acute respiratory failure with hypoxia; J12.82 Pneumonia due to coronavirus disease 2019; Z68.42 Body mass index [BMI] 45.0-49.9, adult; I13.0 Hypertensive heart and chronic kidney disease with heart failure and stage 1 through stage 4 chronic kidney disease, or unspecified chronic kidney disease; I82.432 Acute embolism and thrombosis of left popliteal vein; I82.412 Acute embolism and thrombosis of left femoral vein; I82.442 Acute embolism and thrombosis of left tibial vein; I50.20 Unspecified systolic (congestive) heart failure; E78.5 Hyperlipidemia, unspecified; E66.01 Morbid (severe) obesity due to excess calories; E11.22 Type 2 diabetes mellitus with diabetic chronic kidney disease; I25.10 Atherosclerotic heart disease of native coronary artery without angina pectoris; I25.2 Old myocardial infarction; I25.5 Ischemic cardiomyopathy; N18.9 Chronic kidney disease, unspecified; Z79.01 Long term (current) use of anticoagulants; Z80.42 Family history of malignant neoplasm of prostate; Z82.49 Family history of ischemic heart disease and other diseases of the circulatory system; Z83.3 Family history of diabetes mellitus; Z95.5 Presence of coronary angioplasty implant and graft
CPT/HCPCS: 36415; 71045; 80053; 81001; 82728; 83605; 83615; 83735; 85025; 85379; 85610; 85730; 86141; 87040; 87426; 93306; 93970; 94640; 96361; 96372; 96374; 97110; 97116; 97163; 97530; G0378; J1100; J2405

== ENCOUNTER 2021-05-05 20:28 | Inpatient (IN) | payer BC ==
[~2021-05-05] VITALS: Ht 172.7 cm; Wt 129.5 kg
[~2021-05-05 20:28] MED LIST changes: -CARV3.1240 PO; +CARV6.2551 PO; -CLOP75TA28 PO; -SULF-92 PO
[2021-05-05 22:31] LABS: Basophils # (auto) 0.1 10 ^3/uL (0-0.2); Basophils % (auto) 0.3 % (0.0-2.0); Eosinophils # (auto) 0.1 10 ^3/uL (0-0.8); Eosinophils % (auto) 0.3 % (0.0-7.0); Hematocrit 37.8 % (41.0-53.0); Hemoglobin 12.4 g/dL (13.5-17.5); Lymphocytes # (auto) 1.3 10 ^3/uL (0.4-5.4); Lymphocytes % (auto) 6.9 % (10.0-50.0); Mean Corpuscular Hemoglobin 30.5 pg (28.0-32.0); Mean Corpuscular Hgb Conc. 32.9 g/dL (32.0-36.0); Mean Corpuscular Volume 92.8 fL (80.0-100.0); Monocytes # (auto) 0.8 10 ^3/uL (0-1.3); Monocytes % (auto) 4.2 % (0.0-12.0); Neutrophils # (auto) 16.6 10 ^3/uL (1.6-8.6); Neutrophils % (auto) 88.3 % (37.0-80.0); Red Blood Cells 4.07 10^6/uL (4.5-5.90); Red Cell Distribution Width 15.4 % (11.8-14.3); White Blood Cell 18.8 10^3/uL (4.4-10.8)
[2021-05-05 22:51] LABS: Albumin 2.9 g/dL (3.4-5.0); Calcium 8.8 mg/dL (8.5-10.1); Potassium 5.1 mmol/L (3.5-5.1)
[2021-05-05 22:54] LABS: BUN/Creatinine Ratio 43.4
[2021-05-05 22:57] LABS: Bilirubin, Total 0.6 mg/dL (0.2-1.0)
[2021-05-06 00:23] LABS: Urine Bacteria NONE SEEN /hpf (None Seen); Urine Blood Negative /uL (Negative); Urine Specific Gravity 1.013 (1.001-1.035); Urine WBC 1 /hpf (0 - 3)
[2021-05-06] MEDS ORDERED: PANTOPRAZOLE 40 MG/10 ML VIAL INJ IV ONE (04:00)
[2021-05-06] MEDS ORDERED: SODIUM CHLORIDE 0.9% 1,000 ML IV ONE (04:00)
[2021-05-06] MEDS ORDERED: ONDANSETRON HCL 4 MG/2 ML VIAL IV ONE (04:00)
[2021-05-06 05:46] LABS: INR 1.05 (0.9-1.15)
[2021-05-06] MEDS ORDERED: ONDANSETRON HCL 4 MG/2 ML VIAL IV PRN (07:30)
[2021-05-06] MEDS ORDERED: SODIUM CHLORIDE 0.9% 1,000 ML IV SCH (07:30)
[2021-05-06] MEDS ORDERED: cefTRIAXone 1GM/50ML D5W 50 ML IV SCH (09:00)
[2021-05-06 09:10] LABS: Hematocrit 33.6 % (41.0-53.0); Hemoglobin 11.3 g/dL (13.5-17.5)
[2021-05-06] MEDS ORDERED: PANTOPRAZOLE 40 MG/10 ML VIAL INJ IV SCH (10:00)
[2021-05-06] MEDS: SODIUM CHLORIDE 0.9% 1,000 ML IV SCH (14:45)
[2021-05-06 17:50] LABS: Basophils # (auto) 0.1 10 ^3/uL (0-0.2); Basophils % (auto) 0.8 % (0.0-2.0); Eosinophils # (auto) 0 10 ^3/uL (0-0.8); Eosinophils % (auto) 0.3 % (0.0-7.0); Hematocrit 28.9 % (41.0-53.0); Hemoglobin 9.7 g/dL (13.5-17.5); Lymphocytes # (auto) 1.7 10 ^3/uL (0.4-5.4); Lymphocytes % (auto) 12.4 % (10.0-50.0); Mean Corpuscular Hemoglobin 31.1 pg (28.0-32.0); Mean Corpuscular Hgb Conc. 33.5 g/dL (32.0-36.0); Mean Corpuscular Volume 92.9 fL (80.0-100.0); Monocytes # (auto) 0.8 10 ^3/uL (0-1.3); Monocytes % (auto) 6.1 % (0.0-12.0); Neutrophils % (auto) 80.4 % (37.0-80.0); Red Blood Cells 3.11 10^6/uL (4.5-5.90); Red Cell Distribution Width 15.3 % (11.8-14.3); White Blood Cell 13.6 10^3/uL (4.4-10.8)
[2021-05-06 18:06] LABS: BUN/Creatinine Ratio 52.5; Calcium 7.3 mg/dL (8.5-10.1); Potassium 3.7 mmol/L (3.5-5.1)
[2021-05-06] MEDS ORDERED: LORazepam 2MG/ML-1ML VIAL IV PRN (18:30)
[2021-05-06 19:02] LABS: Folate (Folic Acid) 12.38 ng/mL (5.38-24)
[2021-05-06] MEDS ORDERED: PRAVASTATIN SODIUM 20 MG TAB PO SCH (22:00)
[2021-05-06] MEDS: CARVEDILOL 3.125 MG TAB PO SCH (22:45)
[2021-05-06] MEDS: PANTOPRAZOLE 40 MG/10 ML VIAL INJ IV SCH (22:45)
[2021-05-06 23:17] LABS: Hematocrit 32.3 % (41.0-53.0); Hemoglobin 10.6 g/dL (13.5-17.5)
[2021-05-07] VITALS (7 sets, daily range): BP systolic 99–146; BP diastolic 55–74
[2021-05-07] MEDS: SODIUM CHLORIDE 0.9% 1,000 ML IV SCH ×2 (01:01→10:45)
[2021-05-07 06:50] LABS: Basophils # (auto) 0.1 10 ^3/uL (0-0.2); Basophils % (auto) 0.9 % (0.0-2.0); Eosinophils # (auto) 0.1 10 ^3/uL (0-0.8); Eosinophils % (auto) 0.8 % (0.0-7.0); Hematocrit 28.4 % (41.0-53.0); Hemoglobin 9.6 g/dL (13.5-17.5); Lymphocytes # (auto) 2.3 10 ^3/uL (0.4-5.4); Lymphocytes % (auto) 16.7 % (10.0-50.0); Mean Corpuscular Hemoglobin 31.6 pg (28.0-32.0); Mean Corpuscular Hgb Conc. 33.9 g/dL (32.0-36.0); Mean Corpuscular Volume 93.2 fL (80.0-100.0); Monocytes % (auto) 7.3 % (0.0-12.0); Neutrophils # (auto) 10.2 10 ^3/uL (1.6-8.6); Neutrophils % (auto) 74.3 % (37.0-80.0); Red Blood Cells 3.05 10^6/uL (4.5-5.90); Red Cell Distribution Width 15.5 % (11.8-14.3); White Blood Cell 13.8 10^3/uL (4.4-10.8)
[2021-05-07] MEDS ORDERED: LEVOTHYROXINE SODIUM 50 MCG TAB PO SCH (07:00)
[2021-05-07 07:03] LABS: Albumin 2.8 g/dL (3.4-5.0); Calcium 8.7 mg/dL (8.5-10.1); Potassium 4.6 mmol/L (3.5-5.1)
[2021-05-07 07:08] LABS: Bilirubin, Total 0.4 mg/dL (0.2-1.0); Total Protein 5.6 g/dL (6.4-8.2)
[2021-05-07] MEDS ORDERED: EPINEPHrine HCL 1 MG/10 ML SYRG ONE (08:50)
[2021-05-07] MEDS ORDERED: MIDAZOLAM HCL 5 MG/ML-1ML VIAL ONE (08:50)
[2021-05-07] MEDS ORDERED: LIDOCAINE VISCOUS 2% 15ML UD ONE (08:50)
[2021-05-07] MEDS ORDERED: SODIUM CHLORIDE LOCK 10 ML ONE (08:50)
[2021-05-07] MEDS ORDERED: fentaNYL CITRATE 100 MCG/2 ML VL ONE (08:51)
[2021-05-07] MEDS: CARVEDILOL 3.125 MG TAB PO SCH (10:00)
[2021-05-07] MEDS ORDERED: ALLOPURINOL 100 MG TAB PO SCH (10:00)
[2021-05-07] MEDS ORDERED: ALLOPURINOL 300 MG TAB PO SCH (10:00)
[2021-05-07] MEDS ORDERED: DOXYCYCLINE 100MG/250ML 250 ML IV SCH (10:30)
[2021-05-07] MEDS ORDERED: DOXY-338 PO (10:34)
[2021-05-07] MEDS ORDERED: CAR3125T PO (10:34)
[2021-05-07] MEDS ORDERED: APIX5TAB OR (10:50)
[2021-05-07 11:44] LABS: Hematocrit 27.7 % (41.0-53.0); Hemoglobin 9.6 g/dL (13.5-17.5)
[2021-05-07] MEDS: PANTOPRAZOLE 40 MG/10 ML VIAL INJ IV SCH (11:54)
[2021-05-07] MEDS: diphenhdrAMINE HCL 50 MG/1 ML VL ONE ×2 (15:30→15:35)
== END 2021-05-07 22:29 | disposition home or self-care (01) | DRG 378 ==
LOC: EDBD 20:28 → ER 20:31 → OVERFLOW 05-06 07:21 → CENTRAL 05-06 23:18
PROVIDERS: ADMIT Nurse Practitioner; ATTEND Internal Medicine
PROC: 0DB98ZX Excision of Duodenum, Via Natural or Artificial Opening Endoscopic, Diagnostic (ICD-10-PCS; 2021-05-07)
PROC: 0DB68ZX Excision of Stomach, Via Natural or Artificial Opening Endoscopic, Diagnostic (ICD-10-PCS; principal; 2021-05-07 15:25)
DX: K25.4 Chronic or unspecified gastric ulcer with hemorrhage (principal); N17.9 Acute kidney failure, unspecified; D62 Acute posthemorrhagic anemia; I13.0 Hypertensive heart and chronic kidney disease with heart failure and stage 1 through stage 4 chronic kidney disease, or unspecified chronic kidney disease; I50.22 Chronic systolic (congestive) heart failure; Z68.41 Body mass index [BMI] 40.0-44.9, adult; R55 Syncope and collapse; K29.91 Gastroduodenitis, unspecified, with bleeding; E86.0 Dehydration; E03.9 Hypothyroidism, unspecified; M10.9 Gout, unspecified; G62.9 Polyneuropathy, unspecified; D72.829 Elevated white blood cell count, unspecified; E11.22 Type 2 diabetes mellitus with diabetic chronic kidney disease; E66.01 Morbid (severe) obesity due to excess calories; E78.5 Hyperlipidemia, unspecified; F17.200 Nicotine dependence, unspecified, uncomplicated; I25.10 Atherosclerotic heart disease of native coronary artery without angina pectoris; I25.5 Ischemic cardiomyopathy; E53.8 Deficiency of other specified B group vitamins; M19.90 Unspecified osteoarthritis, unspecified site; Z20.822 Contact with and (suspected) exposure to COVID-19; K44.9 Diaphragmatic hernia without obstruction or gangrene; K21.9 Gastro-esophageal reflux disease without esophagitis; M17.10 Unilateral primary osteoarthritis, unspecified knee; N18.31 Chronic kidney disease, stage 3a; Z79.01 Long term (current) use of anticoagulants; Z79.1 Long term (current) use of non-steroidal anti-inflammatories (NSAID); Z80.42 Family history of malignant neoplasm of prostate; Z82.3 Family history of stroke; Z82.49 Family history of ischemic heart disease and other diseases of the circulatory system; Z83.3 Family history of diabetes mellitus; Z86.16 Personal history of COVID-19; Z86.718 Personal history of other venous thrombosis and embolism; Z95.5 Presence of coronary angioplasty implant and graft; I25.2 Old myocardial infarction; Z88.2 Allergy status to sulfonamides
CPT/HCPCS: 36415; 43239; 70450; 71045; 80048; 80053; 81001; 82270; 82607; 82746; 83036; 84155; 84165; 84443; 85014; 85018; 85025; 85610; 86850; 86900; 86901; 87040; 87426; 93005; 93306; 93971; 95819; 96365; 96375; C9113; G0378; J0696; J2250; J2405; J3490

== ENCOUNTER 2023-10-25 22:53 | Inpatient (IN) | payer BC ==
[~2023-10-25] VITALS: Ht 172.7 cm; Wt 137.0 kg
[~2023-10-25 22:53] MED LIST changes: -ASPI-394 PO; +CARV-214 PO; -CARV6.2551 PO; +DOXY-447 PO; -FURO40TA4 PO; -LISI-275 PO
[2023-10-26 01:01] LABS: Basophils # (auto) 0.1 10 ^3/uL (0-0.2); Basophils % (auto) 0.4 % (0.0-2.0); Eosinophils # (auto) 0.2 10 ^3/uL (0-0.8); Eosinophils % (auto) 1.4 % (0.0-7.0); Hematocrit 41.9 % (41.0-53.0); Lymphocytes # (auto) 1.1 10 ^3/uL (0.4-5.4); Lymphocytes % (auto) 6.7 % (10.0-50.0); Mean Corpuscular Hemoglobin 31.9 pg (28.0-32.0); Mean Corpuscular Hgb Conc. 33.4 g/dL (32.0-36.0); Mean Corpuscular Volume 95.6 fL (80.0-100.0); Monocytes # (auto) 1.2 10 ^3/uL (0-1.3); Monocytes % (auto) 7.3 % (0.0-12.0); Neutrophils # (auto) 13.7 10 ^3/uL (1.6-8.6); Neutrophils % (auto) 84.2 % (37.0-80.0); Red Blood Cells 4.38 10^6/uL (4.5-5.90); Red Cell Distribution Width 15.3 % (11.8-14.3); White Blood Cell 16.3 10^3/uL (4.4-10.8)
[2023-10-26 01:22] LABS: Alanine Aminotransferase 34 U/L (7-40); Albumin 4.1 g/dL (3.2-4.8); Alkaline Phosphatase 71 U/L (46-116); Anion Gap 7 (5-15); Aspartate Aminotransferase 20 U/L (13-40); BUN/Creatinine Ratio 21.4 (10.0-20.0); Bilirubin, Total 0.7 mg/dL (0.2-1.0); Blood Urea Nitrogen 36 mg/dL (9-23); Calcium 9.9 mg/dL (8.7-10.4); Carbon Dioxide 23 mmol/L (20-30); Chloride 109 mmol/L (98-107); Glucose 144 mg/dL (74-106); Potassium 4.2 mmol/L (3.5-5.1); Sodium 139 mmol/L (136-145); Total Protein 6.1 g/dL (5.7-8.2)
[2023-10-26] MEDS ORDERED: NITROGLYCERIN 0.4 MG SL TAB SL PRN (04:00)
[2023-10-26] MEDS ORDERED: ACETAMINOPHEN 325 MG TAB PO PRN (04:00)
[2023-10-26] MEDS ORDERED: ONDANSETRON HCL 4 MG/2 ML VIAL IV PRN (04:00)
[2023-10-26] MEDS ORDERED: DEXTROSE (50%) 50ML SYRG IV PRN (04:00)
[2023-10-26] MEDS ORDERED: MORPHINE SULFATE INJ 2 MG/ml SYRG IV PRN ×2 (04:00)
[2023-10-26] MEDS ORDERED: SODIUM CHLORIDE 0.9% 1,000 ML IV ONE (04:00)
[2023-10-26 04:35] LABS: Basophils # (auto) 0.1 10 ^3/uL (0-0.2); Basophils % (auto) 0.5 % (0.0-2.0); Eosinophils # (auto) 0.2 10 ^3/uL (0-0.8); Eosinophils % (auto) 1.7 % (0.0-7.0); Lymphocytes # (auto) 1.4 10 ^3/uL (0.4-5.4); Lymphocytes % (auto) 9.5 % (10.0-50.0); Mean Corpuscular Hemoglobin 31.2 pg (28.0-32.0); Mean Corpuscular Hgb Conc. 32.5 g/dL (32.0-36.0); Mean Corpuscular Volume 95.8 fL (80.0-100.0); Monocytes # (auto) 1.3 10 ^3/uL (0-1.3); Monocytes % (auto) 9.3 % (0.0-12.0); Neutrophils # (auto) 11.4 10 ^3/uL (1.6-8.6); Nucleated Red Blood Cells % 0.1 %; Red Blood Cells 4.49 10^6/uL (4.5-5.90); Red Cell Distribution Width 15.4 % (11.8-14.3); White Blood Cell 14.4 10^3/uL (4.4-10.8)
[2023-10-26 04:49] LABS: Chloride 108 mmol/L (98-107); Potassium 4.3 mmol/L (3.5-5.1); Sodium 141 mmol/L (136-145)
[2023-10-26 04:50] LABS: Anion Gap 7 (5-15); Calcium 9.8 mg/dL (8.7-10.4); Carbon Dioxide 26 mmol/L (20-30)
[2023-10-26 04:55] LABS: BUN/Creatinine Ratio 28.6 (10.0-20.0); Glucose 136 mg/dL (74-106)
[2023-10-26 05:00] LABS: Blood Urea Nitrogen 48 mg/dL (9-23)
[2023-10-26] MEDS ORDERED: PIPERACILLIN-TAZOB 3.375GM 100 ML IV SCH (06:00)
[2023-10-26] MEDS: InsuLIN REG 1unit/0.01ml Soln (100units/ml) SC SCH (06:00)
[2023-10-26] MEDS: ACCU-CHEK COMFORT CURVE STRIP VI SCH (07:33)
[2023-10-26] MEDS: cefTRIAXone 1GM/50ML D5W 50 ML IV ONE (08:34)
[2023-10-26 09:17] LABS: INR 0.98 (0.9-1.15); Prothrombin Time 10.3 sec (9.3-11.8)
[2023-10-26] MEDS: metroNIDAZOLE 500MG/100ML 100 ML IV ONE (09:43)
[2023-10-26] MEDS: ENOXAPARIN SOD 30 MG/0.3 ML SYRINGE SC SCH (10:00)
[2023-10-26 12:57] VITALS: BP 127/61; PULSE 64; RESP 18; TEMP 98; O2SAT 95
[2023-10-26] MEDS ORDERED: AMLO1TAB23 PO (13:51)
[2023-10-26] MEDS ORDERED: ATOR40TA52 PO (13:51)
[2023-10-26] MEDS ORDERED: CARV3.1240 PO (13:52)
[2023-10-26] MEDS ORDERED: FAMO20TA10 PO (13:53)
[2023-10-26] MEDS ORDERED: FURO40TA4 PO (13:53)
[2023-10-26] MEDS ORDERED: MELO15TA29 PO (13:55)
[2023-10-26] MEDS ORDERED: LISI20TA56 PO (13:56)
[2023-10-26 15:43] VITALS: BP 118/56; PULSE 71; RESP 18; TEMP 97.9; O2SAT 97
[2023-10-26 17:00] VITALS: BP 147/67; PULSE 64; RESP 20; TEMP 97.8; O2SAT 96
[2023-10-26 17:11] VITALS: PULSE 75; RESP 16; O2SAT 96
[2023-10-26] MEDS: ALLOPURINOL 100 MG TAB PO SCH (18:50)
[2023-10-26] MEDS: PIPERACILLIN-TAZOB 3.375GM 100 ML IV SCH (18:50)
[2023-10-26 20:00] VITALS: PULSE 73; PULSE 75; RESP 18; O2SAT 97
[2023-10-26 21:00] VITALS: BP 130/64; PULSE 75; RESP 18; TEMP 98.6; O2SAT 97
[2023-10-26] MEDS: PANTOPRAZOLE 40 MG TAB PO SCH (21:21)
[2023-10-26] MEDS: HYDROcodone-ACET 5/325MG TAB PO PRN (21:27)
[2023-10-26] MEDS: CARVEDILOL 3.125 MG TAB PO SCH (21:28)
[2023-10-27] VITALS (7 sets, daily range): BP systolic 124–160; BP diastolic 57–91; PULSE 66–82; RESP 16–20; TEMP 97.8–98.7; O2SAT 95–99
[2023-10-27] MEDS: hydrALAZINE HCL 20 MG/ML VL IV PRN (04:32)
[2023-10-27] MEDS: LEVOTHYROXINE SODIUM 50 MCG TAB PO SCH (05:47)
[2023-10-27 06:23] LABS: Basophils # (auto) 0.1 10 ^3/uL (0-0.2); Basophils % (auto) 0.4 % (0.0-2.0); Eosinophils # (auto) 0.6 10 ^3/uL (0-0.8); Eosinophils % (auto) 4.5 % (0.0-7.0); Hematocrit 44.4 % (41.0-53.0); Hemoglobin 14.7 g/dL (13.5-17.5); Lymphocytes # (auto) 1.8 10 ^3/uL (0.4-5.4); Lymphocytes % (auto) 13.3 % (10.0-50.0); Mean Corpuscular Hemoglobin 32.1 pg (28.0-32.0); Mean Corpuscular Hgb Conc. 33.1 g/dL (32.0-36.0); Mean Corpuscular Volume 96.8 fL (80.0-100.0); Monocytes # (auto) 1.2 10 ^3/uL (0-1.3); Monocytes % (auto) 9.1 % (0.0-12.0); Neutrophils # (auto) 9.9 10 ^3/uL (1.6-8.6); Neutrophils % (auto) 72.7 % (37.0-80.0); Nucleated Red Blood Cells % 0.2 %; Red Blood Cells 4.58 10^6/uL (4.5-5.90); Red Cell Distribution Width 15.7 % (11.8-14.3); White Blood Cell 13.6 10^3/uL (4.4-10.8)
[2023-10-27 06:36] LABS: Partial Thromboplastin Time 32.1 SEC (24.5-34.5); Prothrombin Time 10.5 sec (9.3-11.8)
[2023-10-27 06:42] LABS: Alanine Aminotransferase 30 U/L (7-40); Albumin 4.4 g/dL (3.2-4.8); Alkaline Phosphatase 77 U/L (46-116); Anion Gap 9 (5-15); Aspartate Aminotransferase 20 U/L (13-40); BUN/Creatinine Ratio 17.4 (10.0-20.0); Bilirubin, Total 1.3 mg/dL (0.2-1.0); Carbon Dioxide 25 mmol/L (20-30); Chloride 106 mmol/L (98-107); Glucose 121 mg/dL (74-106); Potassium 4.3 mmol/L (3.5-5.1); Sodium 140 mmol/L (136-145); Total Protein 6.8 g/dL (5.7-8.2)
[2023-10-27 06:48] LABS: Blood Urea Nitrogen 28 mg/dL (9-23)
[2023-10-27] MEDS: PRAVASTATIN SODIUM 20 MG TAB PO SCH (09:43)
[2023-10-27] MEDS ORDERED: TROLAMINE SALICYLATE 10% TOP CREAM TOP PRN (11:50)
[2023-10-27] MEDS: DOCUSATE SOD 100 MG CAP PO PRN (16:23)
[2023-10-28] VITALS (7 sets, daily range): BP systolic 121–141; BP diastolic 62–70; PULSE 61–79; RESP 16–20; TEMP 98.1–98.4; O2SAT 94–98
[2023-10-28 06:31] LABS: Basophils # (auto) 0 10 ^3/uL (0-0.2); Basophils % (auto) 0.5 % (0.0-2.0); Eosinophils # (auto) 0.4 10 ^3/uL (0-0.8); Eosinophils % (auto) 5.1 % (0.0-7.0); Hematocrit 39.2 % (41.0-53.0); Hemoglobin 13.2 g/dL (13.5-17.5); Lymphocytes # (auto) 1.7 10 ^3/uL (0.4-5.4); Lymphocytes % (auto) 19.4 % (10.0-50.0); Mean Corpuscular Hemoglobin 32.2 pg (28.0-32.0); Mean Corpuscular Hgb Conc. 33.7 g/dL (32.0-36.0); Mean Corpuscular Volume 95.4 fL (80.0-100.0); Monocytes # (auto) 0.8 10 ^3/uL (0-1.3); Monocytes % (auto) 9.1 % (0.0-12.0); Neutrophils # (auto) 5.6 10 ^3/uL (1.6-8.6); Neutrophils % (auto) 65.9 % (37.0-80.0); Nucleated Red Blood Cells % 0.1 %; Red Blood Cells 4.11 10^6/uL (4.5-5.90); Red Cell Distribution Width 15.5 % (11.8-14.3); White Blood Cell 8.5 10^3/uL (4.4-10.8)
[2023-10-28] MEDS: D5W/SOD CHL 0.45% 1,000 ML IV SCH (17:33)
[2023-10-29 05:00] VITALS: BP 146/67; PULSE 66; RESP 20; TEMP 98.1; O2SAT 95
[2023-10-29 06:36] LABS: Basophils # (auto) 0 10 ^3/uL (0-0.2); Basophils % (auto) 0.5 % (0.0-2.0); Eosinophils # (auto) 0.4 10 ^3/uL (0-0.8); Eosinophils % (auto) 4.9 % (0.0-7.0); Hematocrit 40.3 % (41.0-53.0); Hemoglobin 13.6 g/dL (13.5-17.5); Lymphocytes # (auto) 1.4 10 ^3/uL (0.4-5.4); Lymphocytes % (auto) 16.9 % (10.0-50.0); Mean Corpuscular Hemoglobin 32.3 pg (28.0-32.0); Mean Corpuscular Hgb Conc. 33.7 g/dL (32.0-36.0); Mean Corpuscular Volume 95.8 fL (80.0-100.0); Monocytes # (auto) 0.9 10 ^3/uL (0-1.3); Monocytes % (auto) 10.9 % (0.0-12.0); Neutrophils # (auto) 5.5 10 ^3/uL (1.6-8.6); Neutrophils % (auto) 66.8 % (37.0-80.0); Nucleated Red Blood Cells % 0.1 %; Red Blood Cells 4.21 10^6/uL (4.5-5.90); Red Cell Distribution Width 15.1 % (11.8-14.3); White Blood Cell 8.3 10^3/uL (4.4-10.8)
[2023-10-29 08:00] VITALS: PULSE 66; PULSE 76; RESP 18
[2023-10-29] MEDS: GADOTERATE MEG 10 MMOL/20ml INJ (0.5MMOL/ml) IV ONE (08:30)
[2023-10-29 09:00] VITALS: BP 140/66; PULSE 68; RESP 20; TEMP 97.9; O2SAT 98
[2023-10-29 13:00] VITALS: BP 145/72; PULSE 73; RESP 22; TEMP 97.9; O2SAT 98
[2023-10-29] MEDS ORDERED: URSO1TAB8 PO (14:58)
[2023-10-29 17:16] VITALS: BP 136/78; PULSE 82
== END 2023-10-29 18:30 | disposition home or self-care (01) | DRG 445 ==
LOC: EDBD 22:53 → ER 22:53 → TELE 10-26 04:04 → TELE-E-ADS 10-26 12:16 → TELE-CENTR 10-26 16:41
PROVIDERS: ADMIT Nurse Practitioner Family; ATTEND Internal Medicine
DX: K80.00 Calculus of gallbladder with acute cholecystitis without obstruction (principal); C64.2 Malignant neoplasm of left kidney, except renal pelvis; N17.9 Acute kidney failure, unspecified; I13.0 Hypertensive heart and chronic kidney disease with heart failure and stage 1 through stage 4 chronic kidney disease, or unspecified chronic kidney disease; Z68.42 Body mass index [BMI] 45.0-49.9, adult; I50.9 Heart failure, unspecified; E66.01 Morbid (severe) obesity due to excess calories; I25.10 Atherosclerotic heart disease of native coronary artery without angina pectoris; E78.5 Hyperlipidemia, unspecified; M10.9 Gout, unspecified; M19.09 Primary osteoarthritis, other specified site; E11.22 Type 2 diabetes mellitus with diabetic chronic kidney disease; N28.89 Other specified disorders of kidney and ureter; I25.9 Chronic ischemic heart disease, unspecified; N28.1 Cyst of kidney, acquired; N18.9 Chronic kidney disease, unspecified; Z90.5 Acquired absence of kidney; Z86.718 Personal history of other venous thrombosis and embolism; Z82.49 Family history of ischemic heart disease and other diseases of the circulatory system; I25.2 Old myocardial infarction; Z87.11 Personal history of peptic ulcer disease; Z82.3 Family history of stroke; Z83.3 Family history of diabetes mellitus; Z80.42 Family history of malignant neoplasm of prostate; Z95.5 Presence of coronary angioplasty implant and graft
CPT/HCPCS: 36415; 71045; 74176; 74181; 74183; 76705; 78226; 80048; 80053; 82962; 83690; 84484; 85025; 85610; 85730; 93005; 93306; 96365; 96367; 96372; G0378; J1815; J2543; J3490

== ENCOUNTER 2024-12-28 03:11 | Inpatient (IN) | payer BC ==
[2024-12-28] VITALS (13 sets, daily range): BP systolic 97–157; BP diastolic 58–95; PULSE 70–137; RESP 14–30; TEMP 98.4–99.6; O2SAT 90–97
[~2024-12-28] VITALS: Ht 172.7 cm; Wt 138.7 kg
[~2024-12-28 03:11] MED LIST changes: +AMLO1TAB23 PO; +ATOR40TA52 PO; +CARV3.1240 PO; -DOXY-447 PO; +FAMO20TA10 PO; +FURO40TA4 PO; +LISI20TA56 PO; +URSO1TAB8 PO
--- NOTE | 2024-12-28 03:51 | ED.PDOC ---
History of Present Illness HPI Comments 74 y/o morbidly obese M is BIBA for 4x day history of shortness of breath. Per EMS report, breathing worsened, this morning, following initial unprovoked and gradual onset. Patient was found with a SpO2 of 84% room air and placed 4LPM oxygen via nasal cannula. SpO2 improved to 96% upon arrival. Patient denies any chest pain, cough, congestion, fever, chills, or further associated symptoms. Patient has a significant history that includes: angina, arthritis, CAD, CHF, CKF w/renal mass, cholelithiasis, cholecystitis, DM, gout, HLD, HTN, PUD, and thyroid disease. 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, Medications, Allergies Allergies: Coded Allergies: Sulfa Antibiotics (Verified Allergy, Unknown, 07/07/20) Home Meds Active Scripts Ursodiol (Ursodiol) 500 Mg Tab, 1000 MG PO BIDBRS, #120 TAB 1 Refill Prov:UMESH THOMPSON MD 10/29/23 Carvedilol (COREG) 3.125 Mg Tab, 3.125 MG PO Q12HR, #60 TAB Prov:EDILBERTO DOVER MD 05/07/21 Pantoprazole Sodium Sesquihydr (Pantoprazole Sodium) 40 Mg Tab, 40 MG PO BID, #60 TAB Prov:ARNIE DOVER MD 08/30/17 Magnesium Hydroxide (MILK OF MAGNESIA ORAL SUSPENSION) 30 Ml Ss, 30 ML PO DAILY PRN, #7 DOSE Prov:ARNIE DOVER MD 08/30/17 Pravastatin Sodium (PRAVACHOL TABLET) 20 Mg Tb, 40 MG PO DAILY, #30 TAB Prov:ARNIE DOVER MD 08/30/17 Reported Medications Lisinopril (Lisinopril) 20 Mg Tab, 1 TAB PO DAILY, #30 TAB 5 Refills 10/26/23 Furosemide (Furosemide) 40 Mg Tab, 1 TAB PO DAILY, #30 TAB 5 Refills 10/26/23 Famotidine (PEPCID TABLET) 20 Mg Tb, 1 TAB PO DAILY, #60 TAB 5 Refills 10/26/23 Carvedilol (Carvedilol) 3.125 Mg Tab, 2 TAB PO BID, #60 TAB 3 Refills 10/26/23 Atorvastatin Calcium (ATORVASTATIN CALCIUM) 40 Mg Tab, 1 TAB PO DAILY, #30 TAB 5 Refills 10/26/23 Amlodipine Besylate (Amlodipine Besylate) 10 Mg Tab, 1 TAB PO DAILY, #30 TAB 5 Refills 10/26/23 Allopurinol (Allopurinol) 300 Mg Tab, 300 MG PO DAILY for 30 Days, MG 08/25/17 Levothyroxine Sodium (Levothyroxine Sodium) 50 Mcg Tab, 50 MCG PO QAM for 30 Days, MCG 08/25/17 Information Source: Patient, Emergency Med Personnel Mode of Arrival: Ambulatory Severity: Moderate Timing: Days Duration: Since onset Prehospital treatment: 12 Lead EKG, Bridge Painter Helper, Oxygen Past Medical History PAST MEDICAL HISTORY: Angina, Arthritis, CAD, CHF, CKF, DM, Gallstones, Gout, High Lipids, HTN, PUD, Thyroid Past Medical History (Other): Cholecystitis Morbid obesity Renal mass Surgical History: Tonsillectomy Family History Family History: Family hx of heart ana Social History Smoker: Non-Smoker Alcohol: Denies ETOH Use Drugs: Denies Drug Use Lives In: Home All Other Systems: Reviewed and Negative (Comprehensive systems review obtained and negative except for what is stated in the HPI.) Physical Exam General Appearance: No Apparent Distress, Obese HEENT: Normal ENT Inspection, Pharynx Normal, TMs Normal Neck: Full Range of Motion, Non-Tender, Normal, Normal Inspection Respiratory: Chest Non-Tender, Lungs Clear, No Accessory Muscle Use, No Respiratory Distress, Other (tachypneic) Cardiovascular: No Edema, No JVD, No Murmur, No Gallop, Normal Peripheral Puls es, Regular Rate/Rhythm Breast Exam: Deferred Gastrointestinal: No Organomegaly, Non Tender, No Pulsatile Mass, Normal Bowel Sounds, Soft Genitalia: Deferred Pelvic: Deferred Rectal: Deferred Extremities: Leg edema (2+ pitting bilateral lower extremity edema), No calf tenderness, Normal capillary refill, Normal range of motion, Non-tender Musculoskeletal : Apperance: Normal Neurologic: Alert, java 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 Was a procedure done?: No EKG EKG : Pulse Rate (adult): 133 [place]: Normal Cardiac Rhythm: ST Block: RBBB Hypertrophy: None ST: Ant, Lat, Infarct, Nonsp Differential Dx Considerations may include: CHF, COPD, ACS, viral syndrome X-Ray, Labs, Meds, VS Vital Signs Date Time Temp Pulse Resp B/P (MAP) Pulse Ox O2 Delivery O2 Flow Rate FiO2 12/28/24 04:06 137 12/28/24 04:00 137 29 149/88 (108) 90 12/28/24 04:00 137 29 90 Nasal Cannula* 4 36 12/28/24 03:51 133 12/28/24 03:20 135 12/28/24 03:15 98.6 130 22 143/91 (108) 94 98.6 12/28/24 03:15 94 Nasal Cannula* 4 36 Lab Test 12/28/24 04:44 12/28/24 03:40 Range/Units Troponin I High Sensitivity 107 *H 49 </=54 ng/L White Blood Count 13.7 H 4.4-10.8 10^3/uL Red Blood Count 4.29 L 4.5-5.90 10^6/uL Hemoglobin 13.6 13.5-17.5 g/dL Hematocrit 40.7 L 41.0-53.0 % Mean Corpuscular Volume 94.7 80.0-100.0 fL Mean Corpuscular Hemoglobin 31.8 28.0-32.0 pg Mean Corpuscular Hemoglobin Concent 33.5 32.0-36.0 g/dL Red Cell Distribution Width 16.2 H 11.8-14.3 % Platelet Count 184 140-450 10^3/uL Mean Platelet Volume 10.1 6.9-10.8 fL Neutrophils (%) (Auto) 86.4 H 37.0-80.0 % Lymphocytes (%) (Auto) 4.5 L 10.0-50.0 % Monocytes (%) (Auto) 7.2 0.0-12.0 % Eosinophils (%) (Auto) 1.4 0.0-7.0 % Basophils (%) (Auto) 0.5 0.0-2.0 % Neutrophils # (Auto) 11.8 H 1.6-8.6 10 ^3/uL Lymphocytes # (Auto) 0.6 0.4-5.4 10 ^3/uL Monocytes # (Auto) 1.0 0-1.3 10 ^3/uL Eosinophils # (Auto) 0.2 0-0.8 10 ^3/uL Basophils # (Auto) 0.1 0-0.2 10 ^3/uL Nucleated Red Blood Cells 0.0 % Sodium Level 142 136-145 mmol/L Potassium Level 4.6 3.5-5.1 mmol/L Chloride Level 109 H 98-107 mmol/L Carbon Dioxide Level 25 20-31 mmol/L Anion Gap 8 5-15 Blood Urea Nitrogen 32 H 9-23 mg/dL Creatinine 1.47 H 0.700-1.30 mg/dL Glomerular Filtration Rate Calc 50 >90 mL/min BUN/Creatinine Ratio 21.8 H 10.0-20.0 Serum Glucose 137 H 74-106 mg/dL Calcium Level 9.2 8.7-10.4 mg/dL B-Type Natriuretic Peptide 287.82 0-100 pg/mL Time of 1ST Reevaluation: 03:50 Reevaluation 1ST: Improved Patient Education/Counseling: Diagnosis, Treatment Family Education/Counseling: No Family Present Additional Information Previous visits reviewed: October 26, 2023 encounter for Leukocytosis, systomatic cholelithiasis The following tests were ordered, and results were reviewed by me: EKG, troponin, CXR , BNP, CBC, BMP Additional Information was gathered from interviewing the following independent historians: EMS I reviewed and agreed with the following test results read by other providers: CXR I discussed treatment and results with medical personnel and: patient SEPSIS Sepsis Screen Physician Orders Chest Portable (12/28/24 03:28) Electrocardigram (12/28/24 03:28) Troponin-I Hs (12/28/24 06:28) Electrocardigram (12/28/24 04:28) Electrocardigram (12/28/24 06:28) Vital Signs Date Time Temp Pulse Resp B/P (MAP) Pulse Ox O2 Delivery O2 Flow Rate FiO2 12/28/24 04:06 137 12/28/24 04:00 137 29 149/88 (108) 90 12/28/24 04:00 137 29 90 Nasal Cannula* 4 36 12/28/24 03:51 133 12/28/24 03:20 135 12/28/24 03:15 98.6 130 22 143/91 (108) 94 98.6 12/28/24 03:15 94 Nasal Cannula* 4 36 Laboratory Tests Test 12/28/24 03:40 White Blood Count 13.7 10^3/uL (4.4-10.8) H Departure 1 Departure Time of Disposition: 06:04 (Patient presented with shortness of breath that was concerning for possible STEMI, ACS, PE, Pneumonia, Muscle Strain, COPD, Dissection, Acute on Chronic systolic and Diastolic dysfunction. Data: 1. I ordered and reviewed the result of at least 3 labs including a CBC, BMP, and Troponin. 2. I independently interpreted the following tests: EKG which shows sinus arrhthmia and Chest X-ray which shows cardiomegaly.Risk:This patient has a high risk of morbidity due to further diagnostic testing or treatment and may suffer from an acute cardiac or respiratory disorder but is most consitent with an acute chf exacerbation. Patient should be admitted for further workup and possible expert consultation. ) Impression: Primary Impression: Acute on chronic systolic (congestive) heart failure Additional Impression: Shortness of breath Disposition: ADMITTED INPATIENT Admit to: Med Surg Condition: Guarded Critical Care Note Critical Care Time?: Yes Critical care comment: Shortness of breath Authorized and Performed by: Leola Carlin MD Total critical care time: Approximately 39 minutes Due to a high probability of clinically significant, life threatening deterioration, the patient required my highest level of preparedness to intervene emergently and I personally spent this critical care time directly and personally managing the patient. This critical care time included obtaining a history; examining the patient; pulse oximetry; ordering and review of studies; arranging urgent treatment with development of a management plan; evaluation of patient's response to treatment; frequent reassessment; and, discussions with other providers. This critical care time was performed to assess and manage the high probability of imminent, life-threatening deterioration that could result in multi-organ failure. It was exclusive of separately billable procedures and treating other patients and teaching time. Please see my other sections and the rest of the note for further information on patient assessment and treatment. Stability Stability form required: No Heart Score Heart Score: Heart Score Response (Comments) Value History Moderate Suspicious 1 EKG Normal 0 Age >65 2 Risk Factors >3 or Hx ASHD 2 Troponin >3 x's Normal limit 2 Total 7 I personally scribed for LEOLA CARLIN MD ([email or web address]) on 12/28/24 at 03:51. Electronically submitted by Timmy Patel ([email or web address]). LEOLA CARLIN MD Dec 28, 2024 03:51
[2024-12-28 04:00] LABS: Hematocrit 40.7 % (41.0-53.0); Hemoglobin 13.6 g/dL (13.5-17.5); Mean Corpuscular Hemoglobin 31.8 pg (28.0-32.0); Mean Corpuscular Volume 94.7 fL (80.0-100.0); Nucleated Red Blood Cells % 0.0 %
[2024-12-28 04:10] LABS: Potassium 4.6 mmol/L (3.5-5.1); Sodium 142 mmol/L (136-145)
[2024-12-28 04:11] LABS: Anion Gap 8 (5-15); Carbon Dioxide 25 mmol/L (20-31); Chloride 109 mmol/L (98-107)
[2024-12-28 04:12] LABS: Calcium 9.2 mg/dL (8.7-10.4)
--- NOTE | 2024-12-28 04:14 | DVH ---
CHEST RADIOGRAPH Indication: sob Technique: Single frontal view of the chest was obtained COMPARISON: XY CHEST PORTABLE on DOS: 10/27/23, CHEST PORTABLE on DOS: 05/06/21, CHEST PORTABLE on DOS: 07/12/20, CHEST PORTABLE on DOS: 07/09/20 FINDINGS: Lines and Tubes: None Lungs: Diffuse increased prominence of the pulmonary vasculature and interstitium. No evidence of foc al consolidation. Pleura: No effusion. No pneumothorax. Cardiomediastinal contours: Cardiomegaly. Bones: Unremarkable IMPRESSION: 1. Cardiomegaly and diffuse increased prominence of the pulmonary vasculature and interstitium.
[2024-12-28 04:17] LABS: BUN/Creatinine Ratio 21.8 (10.0-20.0)
[2024-12-28 04:21] LABS: Blood Urea Nitrogen 32 mg/dL (9-23); Glucose 137 mg/dL (74-106)
[2024-12-28] MEDS: FUROSEMIDE 40 MG/4 ML VIAL IV ONE (06:17)
[2024-12-28] MEDS ORDERED: HEPARIN SODIUM (PORCINE) 5000 UNITS/ML 1ML VIAL IV ONE ×2 (08:45)
[2024-12-28] MEDS ORDERED: NITROGLYCERIN 0.4 MG SL TAB SL PRN (08:45)
[2024-12-28] MEDS ORDERED: MORPHINE SULFATE INJ 2 MG/ml SYRG IV PRN ×2 (08:45→09:00)
[2024-12-28] MEDS ORDERED: ONDANSETRON HCL 4 MG/2 ML VIAL IV PRN (09:00)
[2024-12-28 09:19] LABS: Hematocrit 40.4 % (41.0-53.0); Hemoglobin 13.9 g/dL (13.5-17.5); Mean Corpuscular Hemoglobin 32.3 pg (28.0-32.0); Mean Corpuscular Volume 93.8 fL (80.0-100.0); Nucleated Red Blood Cells % 0.1 %
[2024-12-28 09:44] LABS: INR 1.0 (0.9-1.15); Partial Thromboplastin Time 28.8 SEC (24.5-34.5); Prothrombin Time 10.6 sec (9.3-11.8)
[2024-12-28] MEDS: D5W/SOD CHLO 0.9% 1,000 ML IV SCH (10:08)
[2024-12-28] MEDS: HEPARIN SODIUM (PORCINE) 5000 UNITS/ML 1ML VIAL IV ONE (10:11)
[2024-12-28] MEDS: PIPERACILLIN-TAZOB 3.375GM 100 ML IV ONE (10:12)
[2024-12-28] MEDS: PANTOPRAZOLE 40 MG/10 ML VIAL INJ IV SCH (10:12)
--- NOTE | 2024-12-28 10:23 | CONS ---
Pharmacy Clinical Information: HEPARIN PER PHARMACY PROTOCOL *NEW HEPARIN ORDER* INITIAL BOLUS: 4000 UNITS INITIAL RATE: 1000 UNITS/HR APTT TO BE DRAWN 6 HOURS FROM WHEN RN STARTS INITIAL DRIP RN JEN EPPS PHARMACIST Dec 28, 2024 10:23
--- NOTE | 2024-12-28 10:26 | DVHINCON2 ---
Date Seen: Dec 28, 2024 Referring Physician MD Sandoval Reason for Consultation NSTEMI History of Present Illness This is a 74-year-old male patient who presents to emergency room with chief complaint of worsening shortness of breath for one day. The patient denies any chest pain. Cardiology has been consulted as time for elevated troponin. Initial twelve lead electrocardiogram reveals sinus tachycardia with right bundle branch block. Initial troponin level of 49ng/L with significant up trend and current peak level of 1303ng/L. Significant past medical history includes coronary artery disease status post PTCA x 4 JAVI (om Plavix), congestive heart failure, myocardial infarction, hypertension, dyslipidemia, thyroid disease, chronic kidney disease, left renal mass, osteoarthritis, and morbid obesity. 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 Past Medical History Past medical history reviewed. No other significant than mentioned above. Past Surgical History Tonsillectomy Family History: Cardiovascular disease G8 MOTHER Cerebrovascular accident (CVA) G8 SISTER FH: chronic kidney disease G8 FATHER Family history: Cardiovascular disease G8 MOTHER Family history: Diabetes mellitus Hypertension G8 FATHER G8 SISTER Ischemic heart disease G8 MOTHER Prostate cancer G8 FATHER No Family History of: Cancer Family History Family history reviewed. Social History Denies the use of tobacco, alcohol or illicit drugs. Allergies: Coded Allergies: Sulfa Antibiotics (Verified Allergy, Unknown, 07/07/20) Home Meds Active Scripts Ursodiol (Ursodiol) 500 Mg Tab, 1000 MG PO BIDBRS, #120 TAB 1 Refill Prov:UMESH THOMPSON MD 10/29/23 Carvedilol (COREG) 3.125 Mg Tab, 3.125 MG PO Q12HR, #60 TAB Prov:EDILBERTO DOVER MD 05/07/21 Pantoprazole Sodium Sesquihydr (Pantoprazole Sodium) 40 Mg Tab, 40 MG PO BID, #60 TAB Prov:ARNIE DOVER MD 08/30/17 Magnesium Hydroxide (MILK OF MAGNESIA ORAL SUSPENSION) 30 Ml Ss, 30 ML PO DAILY PRN, #7 DOSE Prov:ARNIE DOVER MD 08/30/17 Pravastatin Sodium (PRAVACHOL TABLET) 20 Mg Tb, 40 MG PO DAILY, #30 TAB Prov:ARNIE DOVER MD 08/30/17 Reported Medications Lisinopril (Lisinopril) 20 Mg Tab, 1 TAB PO DAILY, #30 TAB 5 Refills 10/26/23 Furosemide (Furosemide) 40 Mg Tab, 1 TAB PO DAILY, #30 TAB 5 Refills 10/26/23 Famotidine (PEPCID TABLET) 20 Mg Tb, 1 TAB PO DAILY, #60 TAB 5 Refills 10/26/23 Carvedilol (Carvedilol) 3.125 Mg Tab, 2 TAB PO BID, #60 TAB 3 Refills 10/26/23 Atorvastatin Calcium (ATORVASTATIN CALCIUM) 40 Mg Tab, 1 TAB PO DAILY, #30 TAB 5 Refills 10/26/23 Amlodipine Besylate (Amlodipine Besylate) 10 Mg Tab, 1 TAB PO DAILY, #30 TAB 5 Refills 10/26/23 Allopurinol (Allopurinol) 300 Mg Tab, 300 MG PO DAILY for 30 Days, MG 08/25/17 Levothyroxine Sodium (Levothyroxine Sodium) 50 Mcg Tab, 50 MCG PO QAM for 30 Days, MCG 08/25/17 Home Meds Home medications reviewed. Current Medications Current Medications Medications (Trade) Dose Ordered Sig/Elaine Route PRN Reason Start Time Stop Time Status Last Admin Heparin Sodium/ Dextrose 250 ml @ 15.816 mls/ hr [id number] IV 12/28/24 08:45 UNV Nitroglycerin (Ntrostat Sublingual) 0.4 mg Q5MINP PRN SL FOR CHEST PAIN 12/28/24 08:45 Morphine Sulfate 2 mg Q30M PRN IV FOR CHEST PAIN 12/28/24 08:45 Pantoprazole Sodium (Protonix) 40 mg DAILY IV 12/28/24 10:00 12/28/24 10:12 Ondansetron HCl (Zofran) 4 mg Q4HPRN PRN IV NAUSEA / VOMITING 12/28/24 09:00 Morphine Sulfate 2 mg Q3HPRN PRN IV SEVERE PAIN (7-10 PAIN SCALE) 12/28/24 09:00 Acetaminophen (Tylenol Tablet) 650 mg Q4HP PRN PO PAIN SCALE 1-3 OR TEMP>100.4 12/28/24 09:00 Dextrose/Sodium Chloride 1,000 ml @ 75 mls/hr [id number] IV 12/28/24 09:00 Review of Systems Constitutional: No symptom reported Ears, Nose, & Throat: No symptom reported Eyes: No symptom reported Neurological: No symptoms reported Pulmonary/Respiratory: Shortness of breath Cardiovascular: No symptom reported Gastrointestinal: No symptom reported Genitourinary: No symptom reported Musculoskeletal: No symptom reported Skin: No symptom reported Psychiatric: No symptom reported Endocrine: No symptom reported Hematologic/Lymphatic: No symptom reported Vital Signs Vital Signs Date Time Temp Pulse Resp B/P (MAP) Pulse Ox O2 Delivery O2 Flow Rate FiO2 12/28/24 09:10 92 12/28/24 07:30 14 97 Nasal Cannula* 4 36 12/28/24 07:30 99.7 146/79 (101) 99.7 Physical Exam General Appearance: Cooperative. Morbidly obese Pulmonary/Respiratory: Diminished bilateral lung bases. Cardiovascular/Chest: Regular rate and rhythm. Peripheral Pulses: 2+ Radial (R). 2+ Radial (L). 2+ Pedal (R). 2+ Pedal (L) Abdominal Exam: Normal bowel sounds. Ankle Exam: Negative ankle edema Lower extremities: Negative lower extremity edema Neuro/Mental Status: A/OX4, coherent. Thoughts/Psych: Normal thought pattern. Appropriate mood and affect. Good judgment and insight. Appearance: No acute distress. Skin Exam: Normal inspection. Normal color. Warm and dry. Labs/Diagnostic Data Labs Test 12/28/24 08:52 12/28/24 06:40 12/28/24 03:40 Range/Units White Blood Count 10.3 4.4-10.8 10^3/uL Red Blood Count 4.31 L 4.5-5.90 10^6/uL Hemoglobin 13.9 13.5-17.5 g/dL Hematocrit 40.4 L 41.0-53.0 % Mean Corpuscular Volume 93.8 80.0-100.0 fL Mean Corpuscular Hemoglobin 32.3 H 28.0-32.0 pg Mean Corpuscular Hemoglobin Concent 34.5 32.0-36.0 g/dL Red Cell Distribution Width 15.8 H 11.8-14.3 % Platelet Count 193 140-450 10^3/uL Mean Platelet Volume 9.9 6.9-10.8 fL Neutrophils (%) (Auto) 81.5 H 37.0-80.0 % Lymphocytes (%) (Auto) 6.6 L 10.0-50.0 % Monocytes (%) (Auto) 11.0 0.0-12.0 % Eosinophils (%) (Auto) 0.6 0.0-7.0 % Basophils (%) (Auto) 0.3 0.0-2.0 % Neutrophils # (Auto) 8.4 1.6-8.6 10 ^3/uL Lymphocytes # (Auto) 0.7 0.4-5.4 10 ^3/uL Monocytes # (Auto) 1.1 0-1.3 10 ^3/uL Eosinophils # (Auto) 0.1 0-0.8 10 ^3/uL Basophils # (Auto) 0 0-0.2 10 ^3/uL Nucleated Red Blood Cells 0.1 % Prothrombin Time 10.6 9.3-11.8 sec Prothrombin Time INR 1.00 0.9-1.15 Activated Partial Thromboplast Time 28.8 24.5-34.5 SEC Troponin I High Sensitivity 1303 *H </=54 ng/L Sodium Level 142 136-145 mmol/L Potassium Level 4.6 3.5-5.1 mmol/L Chloride Level 109 H 98-107 mmol/L Carbon Dioxide Level 25 20-31 mmol/L Anion Gap 8 5-15 Blood Urea Nitrogen 32 H 9-23 mg/dL Creatinine 1.47 H 0.700-1.30 mg/dL Glomerular Filtration Rate Calc 50 >90 mL/min BUN/Creatinine Ratio 21.8 H 10.0-20.0 Serum Glucose 137 H 74-106 mg/dL Calcium Level 9.2 8.7-10.4 mg/dL B-Type Natriuretic Peptide 287.82 0-100 pg/mL Assessment NSTEMI, rule out progressive coronary artery disease Coronary artery disease status post PTCA x 4 JAVI (on Plavix) Acute on chronic compensated HFrEF, NYHA class III Hypertension Dyslipidemia History myocardial infarction Chronic kidney disease History of left renal mass Thyroid disease Osteoarthritis Morbid obesity Plan/Recommendation We will continue with the following plan/recommendations (Dr. Santana): * Transthoracic echocardiogram to evaluate cardiac function * Chest pain protocol * SERA score: 3 points * HEART score: 7 points, high score * Heparin drip per ACS protocol * Single antiplatelet therapy and lipid-lowering agent * Close Cardiac surveillance: Notify cardiology team for any ECG changes * Coronary angiogram Case discussed with . Given the patient's elevated troponin, significant cardiac history, and elevated SERA score, the patient may benefit from a coronary angiogram with left heart catheterization. The procedure was discussed with the patient in full detail including risks and benefits. Risks include but are not limited to bleeding, contrast-induced nephropathy, stroke, and even . The patient understands and is agreeable to undergo the procedure. We will schedule the patient at soonest availability on 12/29/2024. Thank you for allowing us to care for this patient. Please call with any questions or concerns. Critical care time spent: 44 minutes This medical document was created using an electronic medical record system with voice recognition software and computerized dictation system. Although this document has been carefully reviewed, there might still be some phonetic and typ ographical errors. Occasional wrong-word or ``sound-alike substitutions may have occurred due to the inherent limitations of voice recognition software. These areas are purely typographical due to imperfections of the software programs and do not reflect any compromise in the patient's medical care. Please read the chart carefully and recognize, using context, where these subs titutions have occurred. Plan discussed with: Patient NYHA Physical activity limitations: Class3(Marked) ordinary (activity causes symtoms) Date of Service: Dec 28, 2024 Billing Provider: JENNIFER HELM Cardiology Common Codes: 04720-AHLGXNT INP/OBS CARE (High) Cardiology Consultation Codes: [id number] CONSULT <45MIN JENNIFER HELM Dec 28, 2024 10:26
[2024-12-28] MEDS: HEPARIN DRIP/D5W 100UNITS/ML 250 ML IV SCH ×2 (10:33→17:48)
[2024-12-28 10:49] LABS: Magnesium 2.4 mg/dL (1.6-2.6); Triglycerides 68.0 mg/dL (< 150)
[2024-12-28 10:51] LABS: Cholesterol 96.0 mg/dL (< 200); HDL Cholesterol 34.0 mg/dL (40-59)
--- NOTE | 2024-12-28 11:00 | ECG ---
[facility] Test Date: 2024-12-28 Test Time: 03:20:15 Pat Name: AMARJIT ROY Department: ED Room: 0218T Gender: M Freezer Person: YOSELIN : 1950 Requested By: LEOLA CARLIN Order Number: [id number] Reading MD: Laith Santana Measurements Intervals [place] Rate: 135 P: 60 TN: 72 QRS: -65 QRSD: 126 T: 27 QT: 364 QTc: 546 Interpretive Statements Sinus tachycardia Consider right atrial enlargement Right bundle branch block Anterolateral infarct, age indeterminate Electronically Signed On 12-30-2024 20:05:00 PDT by Laith Santana Please click the below link to view image of tracing.
--- NOTE | 2024-12-28 11:01 | ECG ---
[facility] Test Date: 2024-12-28 Test Time: 09:04:40 Pat Name: AMARJIT ROY Department: ER Room: 0218T Gender: M [employer] Intermediary: MARION : 1950 Requested By: SHANICE MOYA Order Number: [id number] Reading MD: Laith Santana Measurements Intervals [place] Rate: 104 P: 0 AL: 121 QRS: -41 QRSD: 156 T: 25 QT: 399 QTc: 525 Interpretive Statements Sinus tachycardia Multiform ventricular premature complexes RBBB and LAFB Electronically Signed On 12-30-2024 20:06:23 PDT by Laith Santana Please click the below link to view image of tracing.
[2024-12-28] MEDS: D5W/SOD CHL 0.45% 1,000 ML IV ONE (11:07)
--- NOTE | 2024-12-28 13:20 | DVHHP2 ---
History of Present Illness Reason for Visit: Shortness of breaths History of Present Illness 74 y/o morbidly obese M is BIBA for 4x day history of shortness of breath. Per EMS report, breathing worsened, this morning, following initial unprovoked and gradual onset. Patient was found with a SpO2 of 84% room air and placed 4LPM oxygen via nasal cannula. SpO2 improved to 96% upon arrival. Patient denies any chest pain, cough, congestion, fever, chills, or further associated symptoms. Patient has a significant history that includes: angina, arthritis, CAD, CHF, CKF w/renal mass, cholelithiasis, cholecystitis, DM, gout, HLD, HTN, PUD, and thyroid disease. He denied any chest pain. However in the ER he is 3rd set of troponin came back elevated. Therefore has been admit to step-down unit and started on IV heparin per protocol. Past Medical History Angina, Arthritis, CAD, CHF, CKF, DM, Gallstones, Gout, High Lipids, HTN, PUD, Thyroid Past Surgical History Coronary angiogram with the branches stent placements in 2018 Family History: Hyperlipidemia, Hypertension Smoke: No ALCOHOL: rare Lives: with Family Review of Systems Review of Systems Denies any chest pain. No headache dizziness or lightheadedness. No fevers chills or sweats. No recent trial. Other review of systems reviewed normal. Allergies: Coded Allergies: Sulfa Antibiotics (Verified Allergy, Unknown, 07/07/20) Medications Current Medications Medications Dose Ordered Sig/Elaine Route Start Time Stop Time Status Last Admin Dose Admin Heparin Sodium/ Dextrose 250 ml @ 10 mls/hr Q24H IV 12/28/24 10:16 12/28/24 10:33 10 MLS/HR Nitroglycerin 0.4 mg Q5MINP PRN SL 12/28/24 08:45 Morphine Sulfate 2 mg Q30M PRN IV 12/28/24 08:45 Pantoprazole Sodium 40 mg DAILY IV 12/28/24 10:00 12/28/24 10:12 40 MG Ondansetron HCl 4 mg Q4HPRN PRN IV 12/28/24 09:00 Morphine Sulfate 2 mg Q3HPRN PRN IV 12/28/24 09:00 Acetaminophen 650 mg Q4HP PRN PO 12/28/24 09:00 Carvedilol 6.25 mg Q12HR PO 12/28/24 22:00 UNV Aspirin 81 mg DAILY PO 12/29/24 10:00 UNV Exam Vital Signs Vital Signs Date Time Temp Pulse Resp B/P (MAP) Pulse Ox O2 Delivery O2 Flow Rate FiO2 12/28/24 12:01 88 20 131/66 (87) 95 12/28/24 07:30 Nasal Cannula* 4 36 12/28/24 07:30 99.7 99.7 Exam Obese gentleman Alert awake oriented x3. Comfortable in bed without any acute distress on oxygen well cannula. Oxygenating normal. HEENT pupils equal round react light. Neck supple no JVD. Heart regular rate and rhythm S1 plus S2. No audible murmurs or gallops. Chest equal expansion. Lungs failure movement without any audible rales or wheezing. Abdomen is obese. Positive active bowel sounds and Soft. Nontender. Extremities plans to distal well pulses. No edema noted. Labs/Xrays Labs Test 12/28/24 11:50 12/28/24 11:17 12/28/24 08:52 12/28/24 03:40 Range/Units Lactic Acid Level 1.0 0.4-2.0 mmol/L Troponin I High Sensitivity 4485 *H </=54 ng/L White Blood Count 10.3 4.4-10.8 10^3/uL Red Blood Count 4.31 L 4.5-5.90 10^6/uL Hemoglobin 13.9 13.5-17.5 g/dL Hematocrit 40.4 L 41.0-53.0 % Mean Corpuscular Volume 93.8 80.0-100.0 fL Mean Corpuscular Hemoglobin 32.3 H 28.0-32.0 pg Mean Corpuscular Hemoglobin Concent 34.5 32.0-36.0 g/dL Red Cell Distribution Width 15.8 H 11.8-14.3 % Platelet Count 193 140-450 10^3/uL Mean Platelet Volume 9.9 6.9-10.8 fL Neutrophils (%) (Auto) 81.5 H 37.0-80.0 % Lymphocytes (%) (Auto) 6.6 L 10.0-50.0 % Monocytes (%) (Auto) 11.0 0.0-12.0 % Eosinophils (%) (Auto) 0.6 0.0-7.0 % Basophils (%) (Auto) 0.3 0.0-2.0 % Neutrophils # (Auto) 8.4 1.6-8.6 10 ^3/uL Lymphocytes # (Auto) 0.7 0.4-5.4 10 ^3/uL Monocytes # (Auto) 1.1 0-1.3 10 ^3/uL Eosinophils # (Auto) 0.1 0-0.8 10 ^3/uL Basophils # (Auto) 0 0-0.2 10 ^3/uL Nucleated Red Blood Cells 0.1 % Prothrombin Time 10.6 9.3-11.8 sec Prothrombin Time INR 1.00 0.9-1.15 Activated Partial Thromboplast Time 28.8 24.5-34.5 SEC Hemoglobin A1c 5.3 <5.7 % A1C Magnesium Level 2.4 1.6-2.6 mg/dL Triglycerides Level 68 < 150 mg/dL Cholesterol Level 96 < 200 mg/dL LDL Cholesterol 48 < 100 mg/dL HDL Cholesterol 34 L 40-59 mg/dL Thyroid Stimulating Hormone (TSH) 1.69 0.55-4.78 uIU/mL Sodium Level 142 136-145 mmol/L Potassium Level 4.6 3.5-5.1 mmol/L Chloride Level 109 H 98-107 mmol/L Carbon Dioxide Level 25 20-31 mmol/L Anion Gap 8 5-15 Blood Urea Nitrogen 32 H 9-23 mg/dL Creatinine 1.47 H 0.700-1.30 mg/dL Glomerular Filtration Rate Calc 50 >90 mL/min BUN/Creatinine Ratio 21.8 H 10.0-20.0 Serum Glucose 137 H 74-106 mg/dL Calcium Level 9.2 8.7-10.4 mg/dL B-Type Natriuretic Peptide 287.82 0-100 pg/mL Assessment/Plan Assessment/Plan Currently patient is clinically stable. We will admit him to step-down unit. Start him on IV heparin drip for non-STEMI protocol. 2D echocardiogram. Cardiac consultation. Troponin serially x2. Aspirin. Statin. Resume his other home medications including Coreg. Continue oxygen. Breathing treatments as needed. Otherwise his father looking for management for clinical course, pending evaluations and recommendations from the deployment engineer. Discussed with the patient has been as nurse at bedside regarding care plan. Plan discussed with: Patient My Orders Orders - GANAPAVARAPU,UMESH MD Procedure Category Date Status Time Platelet Monitoring SUSIE 12/28/24 In Process 08:41 Heparin Per SUSIE 12/28/24 In Process Standardized Proce 08:41 Discontinue All Im SUSIE 12/28/24 In Process Injections 08:41 Heparin Drip/D5w PHA 12/28/24 In Process 100units/Ml 10:16 Stat Ekg For Chest SUSIE 12/28/24 In Process Pain 08:41 * Cardiology Consult CONS 12/28/24 Transmitted 08:41 Admit ADMIT 12/28/24 Transmitted 08:44 Npo Except Ice Chips SUSIE 12/28/24 In Process 08:44 Npo Except For SUSIE 12/28/24 In Process Medications 08:44 Nitroglycerin PHA 12/28/24 In Process Sublingual (Ntrostat 08:45 Morphine Sulfate PHA 12/28/24 In Process Injection 08:45 Notify Of Changes SUSIE 12/28/24 In Process From Base 08:44 Dredge Pumper For SUSIE 12/28/24 In Process 24 Hours 08:44 Emergency Dysrhythmia SUSIE 12/28/24 In Process Protocol 08:44 Rhythm Strips Once SUSIE 12/28/24 In Process Every Shift 08:44 Oxygen By Nasal RT 12/28/24 Transmitted Cannula 08:44 Npo (Nothing By DIET 12/28/24 Transmitted Mouth) Diet Breakfast Troponin-I Hs LAB 12/28/24 Logged 17:48 Troponin-I Hs LAB 12/28/24 Logged 23:48 Pantoprazole PHA 12/28/24 In Process (Protonix) 10:00 Ondansetron Hcl PHA 12/28/24 In Process (Zofran) 09:00 Morphine Sulfate PHA 12/28/24 In Process Injection 09:00 Acetaminophen Tablet PHA 12/28/24 In Process (Tylenol Tablet) 09:00 D5w/Sod Chl 0.45% PHA 12/28/24 In Process (D5w 1/2ns) 10:30 Heparin Per Pharmacy SUSIE 12/28/24 In Process Protocol 10:25 PTPTT LAB 12/28/24 Logged 16:30 Communication Order ORDERS 12/28/24 Transmitted 13:11 Basic Metabolic Panel LAB 12/29/24 Verified 04:00 PTPTT LAB 12/29/24 Verified 04:00 Carvedilol Tablet PHA 12/28/24 Logged (Coreg Tablet) 22:00 Aspirin Enteric PHA 12/29/24 Logged Coated Tablet 10:00 Furosemide Tablet PHA 12/29/24 Transmitted (Lasix Tablet) 10:00 Levothyroxine Tablet PHA 12/29/24 Transmitted (Synthroid Tablet) 07:00 (Nf) Allopurinol PHA 12/29/24 Transmitted 10:00 (Nf) Atorvastatin PHA 12/29/24 Transmitted Calcium 10:00 Problem List: (1) ACUTE RESPIRATORY FAILURE (2) Non-ST elevation (NSTEMI) myocardial infarction (3) Morbid obesity with BMI of 40.0-44.9, adult (4) HYPTNSV HRT & CHR KD, UNSPEC, W HRT FAIL/CHR KD I-IV OR UNSP (5) HTN (hypertension) (6) Hyperlipidemia UMESH THOMPSON MD Dec 28, 2024 13:20
[2024-12-28 17:12] LABS: INR 1.03 (0.9-1.15); Partial Thromboplastin Time 39.1 SEC (24.5-34.5); Prothrombin Time 10.9 sec (9.3-11.8)
--- NOTE | 2024-12-28 17:50 | CONS ---
Pharmacy Clinical Information: HEPARIN PER PHARMACY PREVIOUS RATE: 1000UNITS/HR (APTT 39.1) NEW RATE: 1200UNITS/HR NEXT APTT DRAW 6 HOUR FROM WHEN NEW RATE IS STARTED YUSUF HERNANDEZ AWARE PER RX PROTOCOL JEN REDD PHARMACIST Dec 28, 2024 17:50
[2024-12-28] MEDS: CARVEDILOL 3.125 MG TAB PO SCH (22:00)
[2024-12-28] MEDS: ATORVASTATIN 20 MG TAB PO SCH (22:12)
[2024-12-29] VITALS (21 sets, daily range): BP systolic 103–188; BP diastolic 65–99; PULSE 71–122; RESP 12–36; TEMP 99–99.6; O2SAT 89–98
[2024-12-29 00:32] LABS: INR 1.03 (0.9-1.15); Partial Thromboplastin Time 39.3 SEC (24.5-34.5); Prothrombin Time 10.9 sec (9.3-11.8)
[2024-12-29] MEDS: HEPARIN DRIP/D5W 100UNITS/ML 250 ML IV SCH ×2 (00:50→09:13)
[2024-12-29] MEDS: LEVOTHYROXINE SODIUM 50 MCG TAB PO SCH (07:00)
[2024-12-29 07:20] LABS: Hematocrit 37.9 % (41.0-53.0); Hemoglobin 12.8 g/dL (13.5-17.5); Mean Corpuscular Hemoglobin 32.1 pg (28.0-32.0); Mean Corpuscular Volume 94.7 fL (80.0-100.0); Nucleated Red Blood Cells % 0.0 %
[2024-12-29 07:28] LABS: Potassium 4.4 mmol/L (3.5-5.1); Sodium 142 mmol/L (136-145)
[2024-12-29 07:29] LABS: Anion Gap 8 (5-15); Carbon Dioxide 23 mmol/L (20-31)
[2024-12-29 07:30] LABS: Calcium 10.2 mg/dL (8.7-10.4)
[2024-12-29 07:35] LABS: BUN/Creatinine Ratio 17.5 (10.0-20.0)
[2024-12-29 07:37] LABS: INR 1.03 (0.9-1.15); Partial Thromboplastin Time 47.2 SEC (24.5-34.5); Prothrombin Time 10.9 sec (9.3-11.8)
[2024-12-29 07:38] LABS: Blood Urea Nitrogen 28 mg/dL (9-23); Chloride 111 mmol/L (98-107); Glucose 143 mg/dL (74-106)
[2024-12-29] MEDS: ASPirin-EC 81 mg tab PO SCH (09:04)
[2024-12-29] MEDS: ALLOPURINOL 100 MG TAB PO SCH (09:05)
[2024-12-29] MEDS: FUROSEMIDE 40 MG TAB PO SCH (09:06)
--- NOTE | 2024-12-29 13:42 | ECG ---
[facility] Test Date: 2024-12-28 Test Time: 12:41:49 Pat Name: AMARJIT ROY Department: ED Room: 0218T Gender: M Manager Transfer: BALTA : 1950 Requested By: LEOLA CARLIN Order Number: [id number] Reading MD: Laith Santana Measurements Intervals [place] Rate: 84 P: 0 [place]: 0 QRS: -33 QRSD: 148 T: -14 QT: 436 QTc: 516 Interpretive Statements Atrial flutter Ventricular premature complex Right bundle branch block Lateral infarct, recent Electronically Signed On 12-30-2024 20:07:31 PDT by Laith Santana Please click the below link to view image of tracing.
--- NOTE | 2024-12-29 13:42 | ECG ---
[facility] Test Date: 2024-12-28 Test Time: 09:03:33 Pat Name: AMARJIT ROY Department: ER Room: 0218T Gender: M Senior Informatica Developer: MARION : 1950 Requested By: LEOLA CARLIN Order Number: [id number] Reading MD: Laith Santana Measurements Intervals [place] Rate: 92 P: -32 MT: 228 QRS: -66 QRSD: 154 T: -1 QT: 404 QTc: 500 Interpretive Statements Sinus rhythm Atrial premature complex Prolonged MT interval Right bundle branch block Lateral infarct, recent Baseline wander in lead(s) V1 Electronically Signed On 12-30-2024 20:06:06 PDT by Laith Santana Please click the below link to view image of tracing.
[2024-12-29 14:32] LABS: Urine Protein, UAD 1+ (Negative)
--- NOTE | 2024-12-29 15:07 | DVHPN2 ---
Progress Note - Dictate Date Seen: Dec 29, 2024 Medical Necessity Reason Pt with a Central, PICC or Fol: No Subjective Comfortable in bed. Awaiting coronary angiogram scheduled in few hours. No complaints of chest pain or shortness for breath. vital signs Vital Sign Date Time Temp Pulse Resp B/P (MAP) Pulse Ox O2 Delivery O2 Flow Rate FiO2 12/29/24 14:23 135/73 (93) 12/29/24 14:00 95 12/29/24 14:00 24 90 12/29/24 12:00 99.3 99.3 12/29/24 08:00 Nasal Cannula* 2 28 Total Intake and Output 12/28/24 12/28/24 12/29/24 15:00 23:00 07:00 Intake Total 100 ml 298 ml 460 ml Output Total 0 ml Balance 100 ml 298 ml 460 ml medications Current Medications Medications Dose Ordered Sig/Elaine Route Start Time Stop Time Status Last Admin Dose Admin Nitroglycerin 0.4 mg Q5MINP PRN SL 12/28/24 08:45 Morphine Sulfate 2 mg Q30M PRN IV 12/28/24 08:45 Pantoprazole Sodium 40 mg DAILY IV 12/28/24 10:00 12/29/24 09:06 40 MG Ondansetron HCl 4 mg Q4HPRN PRN IV 12/28/24 09:00 Morphine Sulfate 2 mg Q3HPRN PRN IV 12/28/24 09:00 Acetaminophen 650 mg Q4HP PRN PO 12/28/24 09:00 Carvedilol 6.25 mg Q12HR PO 12/28/24 22:00 12/29/24 09:05 6.25 MG Aspirin 81 mg DAILY PO 12/29/24 10:00 12/29/24 09:04 81 MG Furosemide 40 mg DAILY PO 12/29/24 10:00 12/29/24 09:06 40 MG Levothyroxine Sodium 50 mcg QAM PO 12/29/24 07:00 Allopurinol 300 mg DAILY PO 12/29/24 10:00 12/29/24 09:05 300 MG Atorvastatin Calcium 40 mg HS PO 12/28/24 22:00 12/28/24 22:12 40 MG Heparin Sodium/ Dextrose 250 ml @ 16 mls/hr [id number] IV 12/29/24 09:00 12/29/24 09:13 16 MLS/HR objective HEENT neck supple no JVD. Heart regular rate and rhythm S1-S2. Lungs fair amount without wheezing. Abdomen obese soft positive bowel sounds. Extremities no edema. Positive pulses. laboratory and microbiology Laboratory Tests 12/29/24 07:03 Test 12/29/24 07:03 Range/Units Serum Glucose 143 H 74-106 mg/dL Assessment/Plan Clinically stable. On IV heparin drip overnight. Nausea further chest pain or shortness for breath. Awaiting coronary angiogram scheduled for this afternoon. Discussed with the him the possibility of contrast induced nephropathy given he is renal insufficiency. We will continue gentle hydration. Continue present management. Further management per post angiogram findings and recommendations from the blast furnace tender. Discussed with the patient and nurse at bedside regarding care plan. Problems(with codes): (1) Non-ST elevation (NSTEMI) myocardial infarction (2) Morbid obesity with BMI of 40.0-44.9, adult (3) HTN (hypertension) (4) Acute renal insufficiency Plan discussed with: Patient UMESH THOMPSON MD Dec 29, 2024 15:07
[2024-12-29] MEDS: IODIXANOL 320MG/ML 100ML BTL IV ONE ×2 (15:13→16:03)
[2024-12-29] MEDS: LIDOCAINE 2%HCL (LOCAL ANESTH.) INJ 20ML MDV ONE (15:22)
[2024-12-29 15:31] LABS: INR 1.04 (0.9-1.15); Partial Thromboplastin Time 56.7 SEC (24.5-34.5); Prothrombin Time 11.0 sec (9.3-11.8)
[2024-12-29] MEDS: ANGIOMAX 250 MG VIAL IV ONE ×2 (15:39→16:12)
[2024-12-29] MEDS: HEPARIN SODIUM (PORCINE) 5000 UNITS/ML 1ML VIAL ONE (15:39)
[2024-12-29] MEDS: VERAPAMIL 2.5MG/ML INJ 2ML VIAL IV ONE (15:39)
[2024-12-29] MEDS: SODIUM CHL 0.9% 50 ML ONE ×2 (15:40→16:12)
[2024-12-29] MEDS: MIDAZOLAM HCL 2MG/2ML 2ml VIAL (1mg/ml) ONE (15:40)
[2024-12-29] MEDS: fentaNYL CITRATE 100 MCG/2 ML VL ONE (15:40)
--- NOTE | 2024-12-29 17:11 | DVHOP2 ---
Operative Report - 2 Report Details Date: 12/29/24 Preop Diagnosis: CAD/cardiomyopathy. Postop Diagnosis: Severe CAD/cardiomyopathy Surgeon: Genny Santana MD Anesthesiologist: Conscious sedation Anesthesia: Mac, Local Consent: The patient was informed of the risks and benefits of the procedure. These include but are not limited to complications of anesthesia, postoperative infection, incomplete relief of symptoms, recurrence of symptoms, damage to blood vessels, nerves and tendons, deep venous thrombosis, pulmonary embolism and possible need for repeat surgery in the future. Complications: No complications Findings: Severe CAD/cardiomyopathy Indications for Surgery: Chest pain. Non ST-elevation Name of Procedure Performed Left heart catheterization. Bilateral cine coronary angiography. Left ventriculography. Attempted aperture of chronic total occlusion/lad Procedure Details Procedure Details: Prior local anesthesia with 2% lidocaine to the right wrist and full informed consent obtained the patient was prepped and draped in usual fashion followed by placement of a six [place]ogol[place] sheath into the radial artery. We then placed a multipurpose catheter into the left ventricle and RCA to evaluate ventriculography and RCA anatomy. A XB four was then used to evaluate the left main and left coronary system and attempted angioplasty of the chronically occluded LAD Hemodynamics: Aortic blood pressure was 130/90 end-diastolic pressure was 18. There was no gradient across the aortic valve on pullback. Coronary anatomy RCA is a large vessel it is normal in its proximal mid and distal segments. PDA and posterolateral branches are normal. There was a large collateral from distal posterolateral branch to the LAD distally into the diagonal from the marginal branch. The left main is large and normal. The left anterior descending coronary artery is occluded proximally. The circumflex is large with two marginals free of significant disease. The marginals collateralize a distal diagonal branch. Ventriculography in the JIMENES projection shows global hypokinesis of the anterior apical segment with akinesis of the anterior apical segment as well. Attempted angioplasty with a 4-0 EBU guide. Multiple wires including a Specter wire a C-arm blue, a whisper wire, a pro via three wire and a pro via 12 we used in an attempt to cross the MOTION GRAPHICS DESIGNER. We could not access the true lumen. The procedure was then terminated. The patient tolerated the procedure well there were no complications. Impression chronic occlusion of the left anterior descending coronary artery not amenable to angioplasty. Decreased left ventricular ejection fraction. Elevated left ventricular end-diastolic pressure at rest. Ischemic cardiomyopathy. Recommendations: Continue risk factor modification. Initiate Entresto and afterload reduction. Juan Pablo study to determine need to revascularize LAD coronary bypass grafting and/or retrograde approach Condition Good Disposition Still a Patient Date of Service: Dec 29, 2024 Billing Provider: GENNY SANTANA Sr., MD Cardiology Common Codes: 53032-IHFYJTN INP/OBS CARE (High) Cardiology Procedure Codes: 45637-XJJE ADD CORONARY BRANCH, 59761-CSYT HEART CATH W/INTRA INJ (Attempted angioplasty of chronic total occlusion of the LAD.) GENNY SANTANA Sr., MD Dec 29, 2024 17:11
[2024-12-29] MEDS ORDERED: hydrALAZINE HCL 20 MG/ML VL IV PRN (17:15)
[2024-12-29] MEDS: SODIUM CHLORIDE 0.9% 1,000 ML IV ONE (17:24)
[2024-12-29 20:17] LABS: INR 1.34 (0.9-1.15); Partial Thromboplastin Time 62.2 SEC (24.5-34.5); Prothrombin Time 13.8 sec (9.3-11.8)
[2024-12-29] MEDS: SACUBITRIL-VALSARTAN 24mg/26mg TAB PO SCH (22:21)
[2024-12-30] VITALS (21 sets, daily range): BP systolic 123–161; BP diastolic 69–95; PULSE 68–110; RESP 13–35; TEMP 97.4–100.3; O2SAT 91–99
[2024-12-30 06:45] LABS: Hematocrit 33.4 % (41.0-53.0); Hemoglobin 11.6 g/dL (13.5-17.5); Mean Corpuscular Hemoglobin 32.7 pg (28.0-32.0); Mean Corpuscular Volume 94.4 fL (80.0-100.0); Nucleated Red Blood Cells % 0.1 %
[2024-12-30 06:56] LABS: Anion Gap 10 (5-15); Carbon Dioxide 22 mmol/L (20-31); Potassium 4.5 mmol/L (3.5-5.1); Sodium 141 mmol/L (136-145)
[2024-12-30 06:57] LABS: Calcium 9.4 mg/dL (8.7-10.4)
[2024-12-30 07:02] LABS: Chloride 109 mmol/L (98-107); Glucose 113 mg/dL (74-106)
[2024-12-30 07:04] LABS: BUN/Creatinine Ratio 14.9 (10.0-20.0); Blood Urea Nitrogen 25 mg/dL (9-23)
--- NOTE | 2024-12-30 11:21 | DVHPN2 ---
Consult Progress Note Subjective Patient reports: Feels better Review of Systems: CVS:Abnormal (sob) Objective vital signs Vital Sign Date Time Temp Pulse Resp B/P (MAP) Pulse Ox O2 Delivery O2 Flow Rate FiO2 12/30/24 10:00 95 15 161/89 (113) 94 12/30/24 08:00 Nasal Cannula* 2 12/30/24 08:00 99.3 99.3 Total Intake and Output 12/29/24 12/29/24 12/30/24 15:00 23:00 07:00 Intake Total 96 ml 450 ml 1080 ml Output Total 800 ml 550 ml Balance 96 ml -350 ml 530 ml medications Current Medications Medications Dose Ordered Sig/Elaine Route Start Time Stop Time Status Last Admin Dose Admin Nitroglycerin 0.4 mg Q5MINP PRN SL 12/28/24 08:45 Pantoprazole Sodium 40 mg DAILY IV 12/28/24 10:00 12/30/24 09:32 40 MG Ondansetron HCl 4 mg Q4HPRN PRN IV 12/28/24 09:00 Acetaminophen 650 mg Q4HP PRN PO 12/28/24 09:00 Carvedilol 6.25 mg Q12HR PO 12/28/24 22:00 12/30/24 09:32 6.25 MG Aspirin 81 mg DAILY PO 12/29/24 10:00 12/30/24 09:32 81 MG Furosemide 40 mg DAILY PO 12/29/24 10:00 12/30/24 09:35 40 MG Levothyroxine Sodium 50 mcg QAM PO 12/29/24 07:00 12/30/24 06:47 50 MCG Allopurinol 300 mg DAILY PO 12/29/24 10:00 12/30/24 09:32 300 MG Atorvastatin Calcium 40 mg HS PO 12/28/24 22:00 12/29/24 22:21 40 MG Hydralazine HCl 10 mg Q2HP PRN IV 12/29/24 17:15 Examination: CVS:Normal (Telemetry reviewed consistent with sinus rhythm at 81 beats per minute.) laboratory and microbiology Laboratory Tests 12/30/24 04:45 Test 12/30/24 04:45 Range/Units Serum Glucose 113 H 74-106 mg/dL Problem List/Assessment/Plan Problem List/Assessment/Plan Assessment NSTEMI, rule out progressive coronary artery disease Coronary artery disease status post PTCA x 4 JAVI (on Plavix) Acute on chronic compensated HFrEF, NYHA class III Hypertension Dyslipidemia History myocardial infarction Chronic kidney disease History of left renal mass Thyroid disease Osteoarthritis Morbid obesity Ischemic cardiomyopathy 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 Santana): * Transthoracic echocardiogram to evaluate cardiac function * Chest pain protocol * SERA score: 3 points * HEART score: 7 points, high score * DC Heparin drip, continue aspirn and statin, add plavix. * Single antiplatelet therapy and lipid-lowering agent * Close Cardiac surveillance: Notify cardiology team for any ECG changes * Coronary angiogram * Continue GDMT and titrate as tolerated * Continue diuresis until euvolemic, monitor electrolytes and creatinine. Case Discussed with Dr Santana. Underwent coronary angiogram showing PIERCING MILL OPERATOR pLAD with [id number] collaterals otherwise no significant obstructive CAD. Left ventriculogram showed decreased LV function, follow up echo. Ischemic cardiomyopathy continue GDMT as tolerated on Coreg 6.25 mg p.o. twice daily, Carlos Eduardo/Arb and SGLT held in setting MARIANA on CKD slightly worsen creatinine this morning, continue monitoring with Lasix. Continue diuresis until euvolemic. Patient will benefit from viability study inpatient versus outpatient follow up to determine if patient would benefit from single-vessel CABG versus PIERCING MILL OPERATOR PCI. May downgrade to telemetry. Critical care, time spent: 40 minutes This medical document was created using an electronic medical record system with voice recognition software and computerized dictation system. Although this document has been carefully reviewed, there might still be some phonetic and typographical errors. Occasional wrong-word or ``sound-alike substitutions may have occurred due to the inherent limitations of voice recognition software. These areas are purely typographical due to imperfections of the software programs and do not reflect any compromise in the patient's medical care. Please read the chart carefully and recognize, using context, where these substitutions have occurred. Thank you for allowing me to participate in the management of this patient. The treatment plan was discussed with and agreed upon by patient/family including requesting consultants and ordering of imaging/procedures. Plan discussed with: Patient Date of Service: Dec 30, 2024 Billing Provider: DERIAN FLORES Common Visit Codes: [id number] INP/OBS CARE(HIGH), [id number] CARE 30-74 MIN DERIAN FLORESP Dec 30, 2024 11:21
[2024-12-30] MEDS: CLOPIDOGREL BISULFATE 75 MG TAB PO ONE (12:43)
--- NOTE | 2024-12-30 13:00 | DVHPN2 ---
Progress Note - Dictate Date Seen: Dec 30, 2024 Medical Necessity Reason Pt with a Central, PICC or Fol: No Subjective Comfortable in bed. Had coronary angiogram apparently showed a chronic occlusion therefore cardiology recommended aggressive risk factor modification including weight loss diet exercise and blood pressure control. His creatinine is slightly worsened today. vital signs Vital Sign Date Time Temp Pulse Resp B/P (MAP) Pulse Ox O2 Delivery O2 Flow Rate FiO2 12/30/24 12:00 98.6 87 25 124/69 (87) 98 98.6 12/30/24 08:00 Nasal Cannula* 2 28 Total Intake and Output 12/29/24 12/29/24 12/30/24 15:00 23:00 07:00 Intake Total 96 ml 450 ml 1080 ml Output Total 800 ml 550 ml Balance 96 ml -350 ml 530 ml medications Current Medications Medications Dose Ordered Sig/Elaine Route Start Time Stop Time Status Last Admin Dose Admin Nitroglycerin 0.4 mg Q5MINP PRN SL 12/28/24 08:45 Pantoprazole Sodium 40 mg DAILY IV 12/28/24 10:00 12/30/24 09:32 40 MG Ondansetron HCl 4 mg Q4HPRN PRN IV 12/28/24 09:00 Acetaminophen 650 mg Q4HP PRN PO 12/28/24 09:00 Carvedilol 6.25 mg Q12HR PO 12/28/24 22:00 12/30/24 09:32 6.25 MG Aspirin 81 mg DAILY PO 12/29/24 10:00 12/30/24 09:32 81 MG Furosemide 40 mg DAILY PO 12/29/24 10:00 12/30/24 09:35 40 MG Levothyroxine Sodium 50 mcg QAM PO 12/29/24 07:00 12/30/24 06:47 50 MCG Allopurinol 300 mg DAILY PO 12/29/24 10:00 12/30/24 09:32 300 MG Atorvastatin Calcium 40 mg HS PO 12/28/24 22:00 12/29/24 22:21 40 MG Hydralazine HCl 10 mg Q2HP PRN IV 12/29/24 17:15 Clopidogrel Bisulfate 75 mg DAILY PO 12/31/24 10:00 Hydralazine HCl 50 mg Q12HR PO 12/30/24 22:00 objective HEENT neck supple no JVD. Heart regular rate and rhythm S1-S2. Lungs fair amount without wheezing. Abdomen obese soft positive bowel sounds. Extremities no edema. Positive pulses. laboratory and microbiology Laboratory Tests 12/30/24 04:45 Test 12/30/24 04:45 Range/Units Serum Glucose 113 H 74-106 mg/dL Assessment/Plan Clinically stable. Continue aggressive risk factor modification with a cardiac medications. I will DC Entresto given his kidney function is mildly worsened. Once kidney function improves we will start him back on Entresto for long-term therapy. Meantime I will start him on hydralazine for blood pressure control. Otherwise patient can be downgraded and transferred telemetry floor. Encouraged activity and ambulation. Otherwise further clinical management per clinical course. Discussed with the patient's/nurse as well as laboratory animal care veterinarian regarding care plan. Problems(with codes): (1) Acute on chronic systolic (congestive) heart failure (2) HTN (hypertension) (3) Non-ST elevation (NSTEMI) myocardial infarction (4) Morbid obesity with BMI of 40.0-44.9, adult (5) Acute renal insufficiency Plan discussed with: Patient UMESH THOMPSON MD Dec 30, 2024 13:00
[2024-12-30] MEDS: HYDROcodone-ACET 5/325MG TAB PO PRN (14:49)
--- NOTE | 2024-12-30 18:20 | DVHINCON2 ---
Date of service: Dec 30, 2024 Reason for Consultation MARIANA History of Present Illness 74 years old male with past medical history of morbid obesity, coronary artery disease, diabetes, Chronic kidney disease, Congestive heart failure, dyslipidemia, gout, hypertension, presented with chief complaints of shortness of breath on December 28, 2024 he is found to have positive troponins NSTEMI and underwent cardiac catheterization nephrology consulted for renal function monitoring after cardiac catheterization Patient seen and examined with RN bedside denies any urinary complaints he does complain of knee pain and admits to taking NSAIDs Past Medical History As per HPI Past Surgical History As per HPI Allergies: Coded Allergies: Sulfa Antibiotics (Verified Allergy, Unknown, 07/07/20) Home Meds Active Scripts Ursodiol (Ursodiol) 500 Mg Tab, 1000 MG PO BIDBRS, #120 TAB 1 Refill Prov:UMESH THOMPSON MD 10/29/23 Carvedilol (COREG) 3.125 Mg Tab, 3.125 MG PO Q12HR, #60 TAB Prov:EDILBERTO DOVER MD 05/07/21 Pantoprazole Sodium Sesquihydr (Pantoprazole Sodium) 40 Mg Tab, 40 MG PO BID, #60 TAB Prov:ARNIE DOVER MD 08/30/17 Magnesium Hydroxide (MILK OF MAGNESIA ORAL SUSPENSION) 30 Ml Ss, 30 ML PO DAILY PRN, #7 DOSE Prov:ARNIE DOVER MD 08/30/17 Pravastatin Sodium (PRAVACHOL TABLET) 20 Mg Tb, 40 MG PO DAILY, #30 TAB Prov:ARNIE DOVER MD 08/30/17 Reported Medications Lisinopril (Lisinopril) 20 Mg Tab, 1 TAB PO DAILY, #30 TAB 5 Refills 10/26/23 Furosemide (Furosemide) 40 Mg Tab, 1 TAB PO DAILY, #30 TAB 5 Refills 10/26/23 Famotidine (PEPCID TABLET) 20 Mg Tb, 1 TAB PO DAILY, #60 TAB 5 Refills 10/26/23 Carvedilol (Carvedilol) 3.125 Mg Tab, 2 TAB PO BID, #60 TAB 3 Refills 10/26/23 Atorvastatin Calcium (ATORVASTATIN CALCIUM) 40 Mg Tab, 1 TAB PO DAILY, #30 TAB 5 Refills 10/26/23 Amlodipine Besylate (Amlodipine Besylate) 10 Mg Tab, 1 TAB PO DAILY, #30 TAB 5 Refills 10/26/23 Allopurinol (Allopurinol) 300 Mg Tab, 300 MG PO DAILY for 30 Days, MG 08/25/17 Levothyroxine Sodium (Levothyroxine Sodium) 50 Mcg Tab, 50 MCG PO QAM for 30 Days, MCG 08/25/17 Current Medications Current Medications Medications (Trade) Dose Ordered Sig/Elaine Route PRN Reason Start Time Stop Time Status Last Admin Sacubitril/ Valsartan (Entresto 24-26 Mg tab) 1 tab BID PO 12/29/24 22:00 12/30/24 10:55 DC 12/30/24 09:31 Clopidogrel Bisulfate (Plavix) 75 mg DAILY PO 12/31/24 10:00 Hydralazine HCl (Apresoline Tablet) 50 mg Q12HR PO 12/30/24 22:00 Acetaminophen/ Hydrocodone Bitart ([place] 5/325MG Tab) 1 tab Q4HPRN PRN PO SEVERE PAIN (7-10 PAIN SCALE) 12/30/24 13:00 12/30/24 14:49 Family History: Cardiovascular disease G8 MOTHER Cerebrovascular accident (CVA) G8 SISTER FH: chronic kidney disease G8 FATHER Family history: Cardiovascular disease G8 MOTHER Family history: Diabetes mellitus Hypertension G8 FATHER G8 SISTER Ischemic heart disease G8 MOTHER Prostate cancer G8 FATHER No Family History of: Cancer Review of Systems As documented in HPI otherwise denied any complaints H&P Exam Vital Signs/I&O Vital Sign Date Time Temp Pulse Resp B/P (MAP) Pulse Ox O2 Delivery O2 Flow Rate FiO2 12/30/24 17:06 97.4 73 20 127/94 (105) 98 97.4 12/30/24 08:00 Nasal Cannula* 2 28 Intake and Output 12/29/24 12/30/24 19:00 07:00 Intake Total 246 ml 1380 ml Output Total 800 ml 550 ml Balance -554 ml 830 ml Intake Oral 0 ml 480 ml IV Total 246 ml 900 ml Output Urine Total 800 ml 550 ml Physical Exam General-not in any distress,, morbidly obese HEENT-normocephalic, no icterus, no pallor, neck supple Respiratory-fair air entry bilateral, no rhonchi, no wheeze [id number] heard, no murmurs appreciated Abdominal-soft, nontender, nondistended Musculoskeletal-trace pedal edema, no calf tenderness Genitourinary-deferred Neuro-awake alert oriented x3, Psychiatric-not agitated, cooperative, Labs/Diagnostic Data Labs/Diagnostic Data Laboratory Tests Test 12/30/24 04:45 12/29/24 19:44 12/29/24 15:04 12/29/24 14:11 Range/Units White Blood Count 9.2 4.4-10.8 10^3/uL Red Blood Count 3.54 L 4.5-5.90 10^6/uL Hemoglobin 11.6 L 13.5-17.5 g/dL Hematocrit 33.4 #L 41.0-53.0 % Mean Corpuscular Volume 94.4 80.0-100.0 fL Mean Corpuscular Hemoglobin 32.7 H 28.0-32.0 pg Mean Corpuscular Hemoglobin Concent 34.6 32.0-36.0 g/dL Red Cell Distribution Width 15.9 H 11.8-14.3 % Platelet Count 196 140-450 10^3/uL Mean Platelet Volume 9.6 6.9-10.8 fL Neutrophils (%) (Auto) 74.9 37.0-80.0 % Lymphocytes (%) (Auto) 11.2 10.0-50.0 % Monocytes (%) (Auto) 11.0 0.0-12.0 % Eosinophils (%) (Auto) 2.0 0.0-7.0 % Basophils (%) (Auto) 0.9 0.0-2.0 % Neutrophils # (Auto) 6.9 1.6-8.6 10 ^3/uL Lymphocytes # (Auto) 1.0 0.4-5.4 10 ^3/uL Monocytes # (Auto) 1.0 0-1.3 10 ^3/uL Eosinophils # (Auto) 0.2 0-0.8 10 ^3/uL Basophils # (Auto) 0.1 0-0.2 10 ^3/uL Nucleated Red Blood Cells 0.1 % Sodium Level 141 136-145 mmol/L Potassium Level 4.5 3.5-5.1 mmol/L Chloride Level 109 H 98-107 mmol/L Carbon Dioxide Level 22 20-31 mmol/L Anion Gap 10 5-15 Blood Urea Nitrogen 25 H 9-23 mg/dL Creatinine 1.68 H 0.700-1.30 mg/dL Glomerular Filtration Rate Calc 43 >90 mL/min BUN/Creatinine Ratio 14.9 10.0-20.0 Serum Glucose 113 H 74-106 mg/dL Calcium Level 9.4 8.7-10.4 mg/dL Prothrombin Time 13.8 H 11.0 9.3-11.8 sec Prothrombin Time INR 1.34 H 1.04 0.9-1.15 Activated Partial Thromboplast Time 62.2 H 56.7 H 24.5-34.5 SEC Urine Color Light-yellow Yellow Urine Clarity Clear Clear Urine pH 6.5 5.0-9.0 Urine Specific [place] 1.010 1.001-1.035 Urine Protein 1+ H Negative Urine Ketones Negative Negative Urine Blood Negative Negative /uL Urine Nitrite Negative Negative Urine Bilirubin Negative Negative Urine Urobilinogen Normal Negative mg/dL Urine Leukocyte Esterase Negative Negative /uL Urine RBC None seen 0 - 3 /hpf Urine Microscopic WBC < 1 0-3 /HPF Urine Squamous Epithelial Cells Few <5 /hpf Urine Bacteria Few H None Seen /hpf Urine Glucose Normal Normal mg/dL Test 12/29/24 07:03 12/28/24 23:55 12/28/24 16:22 12/28/24 13:54 Range/Units White Blood Count 8.7 4.4-10.8 10^3/uL Red Blood Count 4.00 L 4.5-5.90 10^6/uL Hemoglobin 12.8 L 13.5-17.5 g/dL Hematocrit 37.9 L 41.0-53.0 % Mean Corpuscular Volume 94.7 80.0-100.0 fL Mean Corpuscular Hemoglobin 32.1 H 28.0-32.0 pg Mean Corpuscular Hemoglobin Concent 33.9 32.0-36.0 g/dL Red Cell Distribution Width 15.8 H 11.8-14.3 % Platelet Count 179 140-450 10^3/uL Mean Platelet Volume 9.7 6.9-10.8 fL Neutrophils (%) (Auto) 73.8 37.0-80.0 % Lymphocytes (%) (Auto) 13.1 10.0-50.0 % Monocytes (%) (Auto) 9.6 0.0-12.0 % Eosinophils (%) (Auto) 2.5 0.0-7.0 % Basophils (%) (Auto) 1.0 0.0-2.0 % Neutrophils # (Auto) 6.4 1.6-8.6 10 ^3/uL Lymphocytes # (Auto) 1.1 0.4-5.4 10 ^3/uL Monocytes # (Auto) 0.8 0-1.3 10 ^3/uL Eosinophils # (Auto) 0.2 0-0.8 10 ^3/uL Basophils # (Auto) 0.1 0-0.2 10 ^3/uL Nucleated Red Blood Cells 0.0 % Prothrombin Time 10.9 10.9 10.9 9.3-11.8 sec Prothrombin Time INR 1.03 1.03 1.03 0.9-1.15 Activated Partial Thromboplast Time 47.2 H 39.3 H 39.1 H 24.5-34.5 SEC Sodium Level 142 136-145 mmol/L Potassium Level 4.4 3.5-5.1 mmol/L Chloride Level 111 H 98-107 mmol/L Carbon Dioxide Level 23 20-31 mmol/L Anion Gap 8 5-15 Blood Urea Nitrogen 28 H 9-23 mg/dL Creatinine 1.60 H 0.700-1.30 mg/dL Glomerular Filtration Rate Calc 46 >90 mL/min BUN/Creatinine Ratio 17.5 10.0-20.0 Serum Glucose 143 H 74-106 mg/dL Calcium Level 10.2 8.7-10.4 mg/dL Troponin I High Sensitivity 3595 *H 5721 *H </=54 ng/L Test 12/28/24 11:50 12/28/24 11:17 12/28/24 08:52 12/28/24 06:40 Range/Units Lactic Acid Level 1.0 0.4-2.0 mmol/L Troponin I High Sensitivity 4485 *H 3300 *H 1303 *H </=54 ng/L White Blood Count 10.3 4.4-10.8 10^3/uL Red Blood Count 4.31 L 4.5-5.90 10^6/uL Hemoglobin 13.9 13.5-17.5 g/dL Hematocrit 40.4 L 41.0-53.0 % Mean Corpuscular Volume 93.8 80.0-100.0 fL Mean Corpuscular Hemoglobin 32.3 H 28.0-32.0 pg Mean Corpuscular Hemoglobin Concent 34.5 32.0-36.0 g/dL Red Cell Distribution Width 15.8 H 11.8-14.3 % Platelet Count 193 140-450 10^3/uL Mean Platelet Volume 9.9 6.9-10.8 fL Neutrophils (%) (Auto) 81.5 H 37.0-80.0 % Lymphocytes (%) (Auto) 6.6 L 10.0-50.0 % Monocytes (%) (Auto) 11.0 0.0-12.0 % Eosinophils (%) (Auto) 0.6 0.0-7.0 % Basophils (%) (Auto) 0.3 0.0-2.0 % Neutrophils # (Auto) 8.4 1.6-8.6 10 ^3/uL Lymphocytes # (Auto) 0.7 0.4-5.4 10 ^3/uL Monocytes # (Auto) 1.1 0-1.3 10 ^3/uL Eosinophils # (Auto) 0.1 0-0.8 10 ^3/uL Basophils # (Auto) 0 0-0.2 10 ^3/uL Nucleated Red Blood Cells 0.1 % Prothrombin Time 10.6 9.3-11.8 sec Prothrombin Time INR 1.00 0.9-1.15 Activated Partial Thromboplast Time 28.8 24.5-34.5 SEC Hemoglobin A1c 5.3 <5.7 % A1C Magnesium Level 2.4 1.6-2.6 mg/dL Triglycerides Level 68 < 150 mg/dL Cholesterol Level 96 < 200 mg/dL LDL Cholesterol 48 < 100 mg/dL HDL Cholesterol 34 L 40-59 mg/dL Thyroid Stimulating Hormone (TSH) 1.69 0.55-4.78 uIU/mL Test 12/28/24 04:44 12/28/24 03:40 Range/Units Troponin I High Sensitivity 107 *H 49 </=54 ng/L White Blood Count 13.7 H 4.4-10.8 10^3/uL Red Blood Count 4.29 L 4.5-5.90 10^6/uL Hemoglobin 13.6 13.5-17.5 g/dL Hematocrit 40.7 L 41.0-53.0 % Mean Corpuscular Volume 94.7 80.0-100.0 fL Mean Corpuscular Hemoglobin 31.8 28.0-32.0 pg Mean Corpuscular Hemoglobin Concent 33.5 32.0-36.0 g/dL Red Cell Distribution Width 16.2 H 11.8-14.3 % Platelet Count 184 140-450 10^3/uL Mean Platelet Volume 10.1 6.9-10.8 fL Neutrophils (%) (Auto) 86.4 H 37.0-80.0 % Lymphocytes (%) (Auto) 4.5 L 10.0-50.0 % Monocytes (%) (Auto) 7.2 0.0-12.0 % Eosinophils (%) (Auto) 1.4 0.0-7.0 % Basophils (%) (Auto) 0.5 0.0-2.0 % Neutrophils # (Auto) 11.8 H 1.6-8.6 10 ^3/uL Lymphocytes # (Auto) 0.6 0.4-5.4 10 ^3/uL Monocytes # (Auto) 1.0 0-1.3 10 ^3/uL Eosinophils # (Auto) 0.2 0-0.8 10 ^3/uL Basophils # (Auto) 0.1 0-0.2 10 ^3/uL Nucleated Red Blood Cells 0.0 % Sodium Level 142 136-145 mmol/L Potassium Level 4.6 3.5-5.1 mmol/L Chloride Level 109 H 98-107 mmol/L Carbon Dioxide Level 25 20-31 mmol/L Anion Gap 8 5-15 Blood Urea Nitrogen 32 H 9-23 mg/dL Creatinine 1.47 H 0.700-1.30 mg/dL Glomerular Filtration Rate Calc 50 >90 mL/min BUN/Creatinine Ratio 21.8 H 10.0-20.0 Serum Glucose 137 H 74-106 mg/dL Calcium Level 9.2 8.7-10.4 mg/dL B-Type Natriuretic Peptide 287.82 0-100 pg/mL Microbiology Date/Time Source Procedure Growth Status 12/29/24 00:07 Nose MRSA Screen - Final Complete Assessment Chronic kidney disease IIIb Congestive heart failure NSTEMI status post cardiac catheterization Morbid obesity Diabetes Gout Recommendations At the moment patient's renal function is at baseline Hold Entresto for another 2 to 3 days can start once renal function is stable Echocardiogram official report is pending Continue Lasix increase dose I we will follow renal function closely Plan discussed with: Patient JOAN CARRERO MD Dec 30, 2024 18:20
[2024-12-30] MEDS: FUROSEMIDE 40 MG TAB PO SCH (21:55)
[2024-12-31] VITALS (8 sets, daily range): BP systolic 124–145; BP diastolic 78–90; PULSE 72–83; RESP 18–19; TEMP 97.1–97.8; O2SAT 93–98
--- NOTE | 2024-12-31 00:31 | DVHSR ---
APPROVED REPORT EXAM: LIMITED Two-dimensional and M-mode echocardiogram with Doppler and color Doppler. Blood Pressure: 146/71 mmHg INDICATION evaluate cardiac function RISK FACTORS Obesity: Height: 5'8, Weight: 320 DIMENSIONS LVDd5.8 (3.8-5.7cm)LA (2D)4.1 (1.9-4.0cm)Aortic Root3.2 (2.0-3.7cm) LVDs4.9 (2.5-4.0cm)LA (MM) (1.9-4.0cm)Aortic Cusp Exc2.0 (1.5-2.0cm) EF (%) 33.0 (55-70%)Rt. Atrium (1.9-4.0cm)Asc. Aorta3.5 cm IVSd0.9 (0.7-1.1cm)RV (D)2.8 (1.8-2.4cm) PWd0.9 (0.7-1.1cm) Mitral Valve MitralMitral Stenosis E wave0.88m/sMV Mean GR.2mmHg A wave0.01m/sMV Peak GR.4mmHg E/A ratio88.02D MVAcm2 DECEL [id number] 1/2 Timems Aortic Valve Aortic ValveAortic Stenosis LVOT Diameter2.7 (1.8-2.4cm)Doppler AVAcm2 Pulmonic Valve V21.02m/s Other Information Technically limited study due to body habitus.patient position. pt stting up breathing shallow Conclusion DILATED ALL CARDIAC CHAMBERS GLOBAL LV AND RV HYPOKINESIS LV EF IS 25% AND IS MODERATELY REDUCED NORMAL VALVES NO EFFUSION STUDY CONSISTENT WITH DILATED CARDIOMYOPATHY MODERATE DEGREE SYSTOLIC LV DYSFUNCTION
[2024-12-31] MEDS: ACETAMINOPHEN 325 MG TAB PO PRN (05:44)
[2024-12-31 06:43] LABS: Anion Gap 10 (5-15); Carbon Dioxide 22 mmol/L (20-31); Potassium 4.6 mmol/L (3.5-5.1); Sodium 140 mmol/L (136-145)
[2024-12-31 06:44] LABS: Calcium 10.4 mg/dL (8.7-10.4)
[2024-12-31 06:49] LABS: BUN/Creatinine Ratio 19.9 (10.0-20.0)
[2024-12-31 06:52] LABS: Blood Urea Nitrogen 32 mg/dL (9-23); Chloride 108 mmol/L (98-107); Glucose 128 mg/dL (74-106)
[2024-12-31] MEDS: CLOPIDOGREL BISULFATE 75 MG TAB PO SCH (09:35)
--- NOTE | 2024-12-31 11:36 | DVHPN2 ---
Progress Note Date Seen: Dec 31, 2024 Medical Necessity Reason Pt with a Central, PICC or Fol: No Subjective Patient reports: No new complaints Review of Systems: Deferred Objective vital signs Vital Sign Date Time Temp Pulse Resp B/P (MAP) Pulse Ox O2 Delivery O2 Flow Rate FiO2 12/31/24 09:34 143/90 12/31/24 09:34 72 12/31/24 09:00 97.1 19 95 97.1 12/31/24 08:10 Nasal Cannula* 2 28 Total Intake and Output 12/30/24 12/30/24 12/31/24 15:00 23:00 07:00 Intake Total 0 ml 800 ml Balance 0 ml 800 ml medications Current Medications Medications Dose Ordered Sig/Elaine Route Start Time Stop Time Status Last Admin Dose Admin Nitroglycerin 0.4 mg Q5MINP PRN SL 12/28/24 08:45 Ondansetron HCl 4 mg Q4HPRN PRN IV 12/28/24 09:00 Acetaminophen 650 mg Q4HP PRN PO 12/28/24 09:00 12/31/24 05:44 650 MG Carvedilol 6.25 mg Q12HR PO 12/28/24 22:00 12/31/24 09:34 6.25 MG Aspirin 81 mg DAILY PO 12/29/24 10:00 12/31/24 09:35 81 MG Levothyroxine Sodium 50 mcg QAM PO 12/29/24 07:00 12/31/24 05:45 50 MCG Atorvastatin Calcium 40 mg HS PO 12/28/24 22:00 12/30/24 21:53 40 MG Hydralazine HCl 10 mg Q2HP PRN IV 12/29/24 17:15 Clopidogrel Bisulfate 75 mg DAILY PO 12/31/24 10:00 12/31/24 09:35 75 MG Hydralazine HCl 50 mg Q12HR PO 12/30/24 22:00 12/31/24 09:34 50 MG Acetaminophen/ Hydrocodone Bitart 1 tab Q4HPRN PRN PO 12/30/24 13:00 12/30/24 14:49 1 TAB Furosemide 40 mg BIDD PO 12/30/24 19:02 12/31/24 05:45 40 MG Examination: GENERAL:Normal, HEENT:Normal, NECK:Normal, LUNGS:Normal, CVS:Normal, ABDOMEN:Normal, MSK:Abnormal, SKIN:Normal, NEURO:Normal, :Normal laboratory and microbiology Laboratory Tests 12/31/24 05:18 12/30/24 04:45 Test 12/31/24 05:18 Range/Units Serum Glucose 128 H 74-106 mg/dL Microbiology Date/Time Source Procedure Growth Status 12/29/24 00:07 Nose MRSA Screen - Final Complete Problem List/Assessment/Plan Problem List/Assessment/Plan Chronic kidney disease IIIb Congestive heart failure NSTEMI status post cardiac catheterization Morbid obesity Diabetes Gout Recommendations s/p cardiac cath At the moment patient's renal function is at baseline Hold Entresto for another 1-2 days can start once renal function is stable Echocardiogram 25 ef Continue Lasix increase dose will follow renal function closely Plan discussed with: Patient My Orders My Orders Orders - JOAN CARRERO MD Procedure Category Date Status Time Furosemide Tablet PHA 12/30/24 In Process (Lasix Tablet) 19:02 Dietary Evaluation Review Comments: Nutrition Recommendation 1) CCHO 75 + cardiac diet 2) Refer to CDE for weight management on DC 3) Monitor PO intake, lab values, wt trend Expected Outcomes/Goals: To meet >75% estimated needs Fu 3-5 days JOAN CARRERO MD Dec 31, 2024 11:35
--- NOTE | 2024-12-31 12:04 | DVHPN2 ---
Consult Progress Note Subjective Patient reports: No new complaints Objective vital signs Vital Sign Date Time Temp Pulse Resp B/P (MAP) Pulse Ox O2 Delivery O2 Flow Rate FiO2 12/31/24 09:34 143/90 12/31/24 09:34 72 12/31/24 09:00 97.1 19 95 97.1 12/31/24 08:10 Nasal Cannula* 2 28 Total Intake and Output 12/30/24 12/30/24 12/31/24 15:00 23:00 07:00 Intake Total 0 ml 800 ml Balance 0 ml 800 ml medications Current Medications Medications Dose Ordered Sig/Elaine Route Start Time Stop Time Status Last Admin Dose Admin Nitroglycerin 0.4 mg Q5MINP PRN SL 12/28/24 08:45 Ondansetron HCl 4 mg Q4HPRN PRN IV 12/28/24 09:00 Acetaminophen 650 mg Q4HP PRN PO 12/28/24 09:00 12/31/24 05:44 650 MG Carvedilol 6.25 mg Q12HR PO 12/28/24 22:00 12/31/24 09:34 6.25 MG Aspirin 81 mg DAILY PO 12/29/24 10:00 12/31/24 09:35 81 MG Levothyroxine Sodium 50 mcg QAM PO 12/29/24 07:00 12/31/24 05:45 50 MCG Atorvastatin Calcium 40 mg HS PO 12/28/24 22:00 12/30/24 21:53 40 MG Hydralazine HCl 10 mg Q2HP PRN IV 12/29/24 17:15 Clopidogrel Bisulfate 75 mg DAILY PO 12/31/24 10:00 12/31/24 09:35 75 MG Hydralazine HCl 50 mg Q12HR PO 12/30/24 22:00 12/31/24 09:34 50 MG Acetaminophen/ Hydrocodone Bitart 1 tab Q4HPRN PRN PO 12/30/24 13:00 12/30/24 14:49 1 TAB Furosemide 40 mg BIDD PO 12/30/24 19:02 12/31/24 05:45 40 MG Examination: CVS:Normal (Telemetry reviewed consistent with sinus rhythm at 80 beats per minute.) laboratory and microbiology Laboratory Tests 12/31/24 05:18 12/30/24 04:45 Test 12/31/24 05:18 Range/Units Serum Glucose 128 H 74-106 mg/dL Problem List/Assessment/Plan Problem List/Assessment/Plan Assessment NSTEMI, rule out progressive coronary artery disease Coronary artery disease status post PTCA x 4 JAVI (on Plavix) Acute on chronic compensated HFrEF, NYHA class III Hypertension Dyslipidemia History myocardial infarction Chronic kidney disease History of left renal mass Thyroid disease Osteoarthritis Morbid obesity Ischemic cardiomyopathy JOURNALIST prox LAD Plan/Recommendation We will continue with the following plan/recommendations (Dr. Santana): * Transthoracic echocardiogram to evaluate cardiac function * Chest pain protocol * SERA score: 3 points * HEART score: 7 points, high score * DC Heparin drip, continue aspirn and statin, add plavix. * Single antiplatelet therapy and lipid-lowering agent * Close Cardiac surveillance: Notify cardiology team for any ECG changes * Coronary angiogram * Continue GDMT and titrate as tolerated * Continue diuresis until euvolemic, monitor electrolytes and creatinine. Case Discussed with Dr Santana. Underwent coronary angiogram showing JOURNALIST pLAD with [id number] collaterals otherwise no significant obstructive CAD. Left ventriculogram showed decreased LV function, follow up echo. Ischemic cardiomyopathy continue GDMT as tolerated on Coreg 6.25 mg p.o. twice daily, Carlos Eduardo/Arb and SGLT held in setting MARIANA on CKD slightly worsen creatinine this morning, continue monitoring with Lasix. Per Nephrology plan to restart in 1-2 more days. Kidney function seems to be at baseline. Continue diuresis until euvolemic. Patient will benefit from viability study inpatient versus outpatient follow up to determine if patient would benefit from single-vessel CABG versus JOURNALIST PCI. May downgrade to telemetry. Critical care, time spent: 40 minutes This medical document was created using an electronic medical record system with voice recognition software and computerized dictation system. Although this document has been carefully reviewed, there might still be some phonetic and typographical errors. Occasional wrong-word or ``sound-alike substitutions may have occurred due to the inherent limitations of voice recognition software. These areas are purely typographical due to imperfections of the software programs and do not reflect any compromise in the patient's medical care. Please read the chart carefully and recognize, using context, where these substitutions have occurred. Thank you for allowing me to participate in the management of this patient. The treatment plan was discussed with and agreed upon by patient/family including requesting consultants and ordering of imaging/procedures. Plan discussed with: Patient Dietary Evaluation Review Comments: Nutrition Recommendation 1) CCHO 75 + cardiac diet 2) Refer to CDE for weight management on DC 3) Monitor PO intake, lab values, wt trend Expected Outcomes/Goals: To meet >75% estimated needs Fu 3-5 days Date of Service: Dec 31, 2024 Billing Provider: DERIAN FLORES Common Visit Codes: 11068-[id number] INP/OBS CARE(HIGH) DERIAN FLORES Dec 31, 2024 12:04
--- NOTE | 2024-12-31 14:36 | DVHPN2 ---
Progress Note - Dictate Date Seen: Dec 31, 2024 Medical Necessity Reason Pt with a Central, PICC or Fol: No Subjective Complains of osteoarthritis knee pain that he has. He is apparently taking meloxicam at home. However this is discontinued in the hospital due to his renal insufficiency. vital signs Vital Sign Date Time Temp Pulse Resp B/P (MAP) Pulse Ox O2 Delivery O2 Flow Rate FiO2 12/31/24 13:00 97.8 76 19 142/87 (105) 96 97.8 12/31/24 08:10 Nasal Cannula* 2 28 Total Intake and Output 12/30/24 12/30/24 12/31/24 15:00 23:00 07:00 Intake Total 0 ml 800 ml Balance 0 ml 800 ml medications Current Medications Medications Dose Ordered Sig/Elaine Route Start Time Stop Time Status Last Admin Dose Admin Nitroglycerin 0.4 mg Q5MINP PRN SL 12/28/24 08:45 Ondansetron HCl 4 mg Q4HPRN PRN IV 12/28/24 09:00 Acetaminophen 650 mg Q4HP PRN PO 12/28/24 09:00 12/31/24 05:44 650 MG Carvedilol 6.25 mg Q12HR PO 12/28/24 22:00 12/31/24 09:34 6.25 MG Aspirin 81 mg DAILY PO 12/29/24 10:00 12/31/24 09:35 81 MG Levothyroxine Sodium 50 mcg QAM PO 12/29/24 07:00 12/31/24 05:45 50 MCG Atorvastatin Calcium 40 mg HS PO 12/28/24 22:00 12/30/24 21:53 40 MG Hydralazine HCl 10 mg Q2HP PRN IV 12/29/24 17:15 Clopidogrel Bisulfate 75 mg DAILY PO 12/31/24 10:00 12/31/24 09:35 75 MG Hydralazine HCl 50 mg Q12HR PO 12/30/24 22:00 12/31/24 09:34 50 MG Acetaminophen/ Hydrocodone Bitart 1 tab Q4HPRN PRN PO 12/30/24 13:00 Hold 12/30/24 14:49 1 TAB Furosemide 40 mg BIDD PO 12/30/24 19:02 12/31/24 05:45 40 MG Acetaminophen/ Codeine Phosphate 1 tab Q4HP PRN PO 12/31/24 14:30 objective HEENT neck supple no JVD. Heart regular rate and rhythm S1-S2. Lungs fair amount without wheezing. Abdomen obese soft positive bowel sounds. Extremities no edema. Positive pulses. laboratory and microbiology Laboratory Tests 12/31/24 05:18 12/30/24 04:45 Test 12/31/24 05:18 Range/Units Serum Glucose 128 H 74-106 mg/dL Assessment/Plan Clinically stable. Creatinine slightly improved. I will start him on Tylenol with codeine for his arthritic pain. Continue physical therapy. Social Service consultation for home PT and walker. Monitor him overnight and if he remains stable consider discharge home tomorrow with outpatient follow up with Cardiology for myocardial viable steady and further referrals as appropriate. Discussed with the patient at bedside and he has verbalized understanding of this and agree with the current care plan. Problems(with codes): (1) Non-ST elevation (NSTEMI) myocardial infarction (2) Morbid obesity with BMI of 40.0-44.9, adult (3) Acute renal insufficiency (4) Acute respiratory failure (5) Acute myocardial infarction Dietary Evaluation Review Comments: Nutrition Recommendation 1) CCHO 75 + cardiac diet 2) Refer to CDE for weight management on DC 3) Monitor PO intake, lab values, wt trend Expected Outcomes/Goals: To meet >75% estimated needs Fu 3-5 days Plan discussed with: Other UMESH THOMPSON MD Dec 31, 2024 14:36
[2025-01-01] VITALS (9 sets, daily range): BP systolic 110–158; BP diastolic 74–90; PULSE 50–94; RESP 16–20; TEMP 97.3–98; O2SAT 94–99
[2025-01-01] MEDS: ACETAMINOPHEN/CODEINE#3 (300/30mg) TAB PO PRN (00:37)
[2025-01-01 07:52] LABS: Anion Gap 12 (5-15); Carbon Dioxide 21 mmol/L (20-31); Potassium 4.7 mmol/L (3.5-5.1); Sodium 141 mmol/L (136-145)
[2025-01-01 07:58] LABS: BUN/Creatinine Ratio 21.8 (10.0-20.0); Glucose 103 mg/dL (74-106)
[2025-01-01 08:05] LABS: Blood Urea Nitrogen 36 mg/dL (9-23); Calcium 10.6 mg/dL (8.7-10.4); Chloride 108 mmol/L (98-107)
--- NOTE | 2025-01-01 10:49 | DVHPN2 ---
Progress Note Date Seen: Jan 01, 2025 Medical Necessity Reason Pt with a Central, PICC or Fol: No Objective vital signs Vital Sign Date Time Temp Pulse Resp B/P (MAP) Pulse Ox O2 Delivery O2 Flow Rate FiO2 01/01/25 09:15 98.0 55 18 118/81 (93) 94 98.0 12/31/24 20:00 Room Air* 0 21 Total Intake and Output 12/31/24 12/31/24 01/01/25 15:00 23:00 07:00 Intake Total 725 ml 200 ml Output Total 600 ml Balance 725 ml -400 ml medications Current Medications Medications Dose Ordered Sig/Elaine Route Start Time Stop Time Status Last Admin Dose Admin Nitroglycerin 0.4 mg Q5MINP PRN SL 12/28/24 08:45 Ondansetron HCl 4 mg Q4HPRN PRN IV 12/28/24 09:00 Acetaminophen 650 mg Q4HP PRN PO 12/28/24 09:00 12/31/24 05:44 650 MG Carvedilol 6.25 mg Q12HR PO 12/28/24 22:00 12/31/24 21:18 6.25 MG Aspirin 81 mg DAILY PO 12/29/24 10:00 01/01/25 08:39 81 MG Levothyroxine Sodium 50 mcg QAM PO 12/29/24 07:00 01/01/25 05:05 50 MCG Atorvastatin Calcium 40 mg HS PO 12/28/24 22:00 12/31/24 21:18 40 MG Hydralazine HCl 10 mg Q2HP PRN IV 12/29/24 17:15 Clopidogrel Bisulfate 75 mg DAILY PO 12/31/24 10:00 01/01/25 08:39 75 MG Hydralazine HCl 50 mg Q12HR PO 12/30/24 22:00 01/01/25 08:39 50 MG Acetaminophen/ Hydrocodone Bitart 1 tab Q4HPRN PRN PO 12/30/24 13:00 Hold 12/30/24 14:49 1 TAB Furosemide 40 mg BIDD PO 12/30/24 19:02 01/01/25 05:05 40 MG Acetaminophen/ Codeine Phosphate 1 tab Q4HP PRN PO 12/31/24 14:30 01/01/25 08:40 1 TAB Examination: GENERAL:Normal, CVS:Normal, ABDOMEN:Normal laboratory and microbiology Laboratory Tests 01/01/25 05:00 12/30/24 04:45 Test 01/01/25 05:00 Range/Units Serum Glucose 103 74-106 mg/dL Microbiology Date/Time Source Procedure Growth Status 12/29/24 00:07 Nose MRSA Screen - Final Complete Problem List/Assessment/Plan Problem List/Assessment/Plan Chronic kidney disease IIIb Congestive heart failure NSTEMI status post cardiac catheterization Morbid obesity Diabetes Gout s/p cardiac cath At the moment patient's renal function is at baseline Hold Entresto for another 1-2 days can start once renal function is stable Echocardiogram 25 ef Continue Lasix increase dose stable renal function rec outpatient renal clinic total care time 35mins Plan discussed with: Patient Dietary Evaluation Review Comments: Nutrition Recommendation 1) CCHO 75 + cardiac diet 2) Refer to CDE for weight management on DC 3) Monitor PO intake, lab values, wt trend Expected Outcomes/Goals: To meet >75% estimated needs Fu 3-5 days ROHAN EATON MD Jan 01, 2025 10:49
[2025-01-01] MEDS ORDERED: FURO40TA4 PO (11:40)
[2025-01-01] MEDS ORDERED: ASPI-543 PO (11:40)
[2025-01-01] MEDS ORDERED: CLOP75TA70 PO (11:40)
[2025-01-01] MEDS ORDERED: HYDR50TA47 PO (11:40)
--- NOTE | 2025-01-01 11:42 | DVHDS2 ---
Discharge Summary Date of Admission Dec 28, 2024 at 08:44 Date of Discharge: Jan 01, 2025 Admitting Diagnosis Chest pain Labs/Diagnostic Data: Laboratory Results Test 01/01/25 05:00 12/30/24 04:45 12/29/24 19:44 12/29/24 14:11 Sodium Level 141 mmol/L (136-145) Potassium Level 4.7 mmol/L (3.5-5.1) Chloride Level 108 mmol/L (98-107) Carbon Dioxide Level 21 mmol/L (20-31) Anion Gap 12 (5-15) Blood Urea Nitrogen 36 mg/dL (9-23) Creatinine 1.65 mg/dL (0.700-1.30) Glomerular Filtration Rate Calc 44 mL/min (>90) BUN/Creatinine Ratio 21.8 (10.0-20.0) Serum Glucose 103 mg/dL (74-106) Calcium Level 10.6 mg/dL (8.7-10.4) White Blood Count 9.2 10^3/uL (4.4-10.8) Red Blood Count 3.54 10^6/uL (4.5-5.90) Hemoglobin 11.6 g/dL (13.5-17.5) Hematocrit 33.4 % (41.0-53.0) Mean Corpuscular Volume 94.4 fL (80.0-100.0) Mean Corpuscular Hemoglobin 32.7 pg (28.0-32.0) Mean Corpuscular Hemoglobin Concent 34.6 g/dL (32.0-36.0) Red Cell Distribution Width 15.9 % (11.8-14.3) Platelet Count 196 10^3/uL (140-450) Mean Platelet Volume 9.6 fL (6.9-10.8) Neutrophils (%) (Auto) 74.9 % (37.0-80.0) Lymphocytes (%) (Auto) 11.2 % (10.0-50.0) Monocytes (%) (Auto) 11.0 % (0.0-12.0) Eosinophils (%) (Auto) 2.0 % (0.0-7.0) Basophils (%) (Auto) 0.9 % (0.0-2.0) Neutrophils # (Auto) 6.9 10 ^3/uL (1.6-8.6) Lymphocytes # (Auto) 1.0 10 ^3/uL (0.4-5.4) Monocytes # (Auto) 1.0 10 ^3/uL (0-1.3) Eosinophils # (Auto) 0.2 10 ^3/uL (0-0.8) Basophils # (Auto) 0.1 10 ^3/uL (0-0.2) Nucleated Red Blood Cells 0.1 % Prothrombin Time 13.8 sec (9.3-11.8) Prothrombin Time INR 1.34 (0.9-1.15) Activated Partial Thromboplast Time 62.2 SEC (24.5-34.5) Urine Color Light-yellow (Yellow) Urine Clarity Clear (Clear) Urine pH 6.5 (5.0-9.0) Urine Specific [place] 1.010 (1.001-1.035) Urine Protein 1+ (Negative) Urine Ketones Negative (Negative) Urine Blood Negative /uL (Negative) Urine Nitrite Negative (Negative) Urine Bilirubin Negative (Negative) Urine Urobilinogen Normal mg/dL (Negative) Urine Leukocyte Esterase Negative /uL (Negative) Urine RBC None seen /hpf (0 - 3) Urine Microscopic WBC < 1 /HPF (0-3) Urine Squamous Epithelial Cells Few /hpf (<5) Urine Bacteria Few /hpf (None Seen) Urine Glucose Normal mg/dL (Normal) Test 12/28/24 23:55 12/28/24 11:50 12/28/24 08:52 12/28/24 03:40 Troponin I High Sensitivity 3595 ng/L (</=54) Lactic Acid Level 1.0 mmol/L (0.4-2.0) Hemoglobin A1c 5.3 % A1C (<5.7) Magnesium Level 2.4 mg/dL (1.6-2.6) Triglycerides Level 68 mg/dL (< 150) Cholesterol Level 96 mg/dL (< 200) LDL Cholesterol 48 mg/dL (< 100) HDL Cholesterol 34 mg/dL (40-59) Thyroid Stimulating Hormone (TSH) 1.69 uIU/mL (0.55-4.78) B-Type Natriuretic Peptide 287.82 pg/mL (0-100) Other Laboratory Tests 01/01/25 05:00 12/30/24 04:45 Brief Hx & Hospital Course: 74 y/o morbidly obese M is BIBA for 4x day history of shortness of breath. Per EMS report, breathing worsened, this morning, following initial unprovoked and gradual onset. Patient was found with a SpO2 of 84% room air and placed 4LPM oxygen via nasal cannula. SpO2 improved to 96% upon arrival. Patient denies any chest pain, cough, congestion, fever, chills, or further associated symptoms. Patient has a significant history that includes: angina, arthritis, CAD, CHF, CKF w/renal mass, cholelithiasis, cholecystitis, DM, gout, HLD, HTN, PUD, and thyroid disease. He denied any chest pain. However in the ER he is 3rd set of troponin came back elevated. Therefore has been admit to step-down unit and started on IV heparin per protocol. He is admitted and evaluated by cellular tower climber. Patient had a coronary angiogram recommended medical treatment. 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 Steam Box Tender recommended a myocardial viable study and to consider outpatient single-vessel bypass if appropriate. While in the hospital patient remained clinically stable. Pain-free. Having had necessary workup and evaluations clinically stable it is felt he could be safely discharged home with medical management and follow up with the cellular tower climber for further workup and referrals as deemed appropriate. I have discussed this with the patient and he has verbalized understanding of his hospital diagnosis, treatment he received, angiogram findings, discharge medications, discharge follow up and agreed with care plan as outlined. Consults/Reason for consult Operative Report - 2 Report Details Date: 12/29/24 Preop Diagnosis: CAD/cardiomyopathy. Postop Diagnosis: Severe CAD/cardiomyopathy Surgeon: Laith Santana MD Anesthesiologist: Conscious sedation Anesthesia: Mac, Local Consent: The patient was informed of the risks and benefits of the procedure. These include but are not limited to complications of anesthesia, postoperative infection, incomplete relief of symptoms, recurrence of symptoms, damage to blood vessels, nerves and tendons, deep venous thrombosis, pulmonary embolism and possible need for repeat surgery in the future. Complications: No complications Findings: Severe CAD/cardiomyopathy Indications for Surgery: Chest pain. Non ST-elevation Name of Procedure Performed Left heart catheterization. Bilateral cine coronary angiography. Left ventriculography. Attempted aperture of chronic total occlusion/lad Procedure Details Procedure Details: Prior local anesthesia with 2% lidocaine to the right wrist and full informed consent obtained the patient was prepped and draped in usual fashion followed by placement of a six Belgian sheath into the radial artery. We then placed a multipurpose catheter into the left ventricle and RCA to evaluate ventriculography and RCA anatomy. A XB four was then used to evaluate the left main and left coronary system and attempted angioplasty of the chronically occluded LAD Hemodynamics: Aortic blood pressure was 130/90 end-diastolic pressure was 18. There was no gradient across the aortic valve on pullback. Coronary anatomy RCA is a large vessel it is normal in its proximal mid and distal segments. PDA and posterolateral branches are normal. There was a large collateral from distal posterolateral branch to the LAD distally into the diagonal from the marginal branch. The left main is large and normal. The left anterior descending coronary artery is occluded proximally. The circumflex is large with two marginals free of significant disease. The marginals collateralize a distal diagonal branch. Ventriculography in the JIMENES projection shows global hypokinesis of the anterior apical segment with akinesis of the anterior apical segment as well. Attempted angioplasty with a 4-0 EBU guide. Multiple wires including a Specter wire a C-arm blue, a whisper wire, a pro via three wire and a pro via 12 we used in an attempt to cross the TRANSPORTATION AID. We could not access the true lumen. The procedure was then terminated. The patient tolerated the procedure well there were no complications. Impression chronic occlusion of the left anterior descending coronary artery not amenable to angioplasty. Decreased left ventricular ejection fraction. Elevated left ventricular end-diastolic pressure at rest. Ischemic cardiomyopathy. Recommendations: Continue risk factor modification. Initiate Entresto and afterload reduction. [place] study to determine need to revascularize LAD coronary bypass grafting and/or retrograde approach Condition Good Operations or Procedures EXAM: LIMITED Two-dimensional and M-mode echocardiogram with Doppler and color Doppler. Blood Pressure: 146/71 mmHg INDICATION evaluate cardiac function RISK FACTORS Obesity: Height: 5'8, Weight: 320 DIMENSIONS LVDd 5.8 (3.8-5.7cm) LA (2D) 4.1 (1.9-4.0cm) Aortic Root 3.2 (2.0- 3.7cm) LVDs 4.9 (2.5-4.0cm) LA (MM) (1.9-4.0cm) Aortic Cusp Exc 2.0 (1.5- 2.0cm) EF (%) 33.0 (55-70%) Rt. Atrium (1.9-4.0cm) Asc. Aorta 3.5 cm IVSd 0.9 (0.7-1.1cm) RV (D) 2.8 (1.8-2.4cm) PWd 0.9 (0.7-1.1cm) Mitral Valve Mitral Mitral Stenosis E wave 0.88m/s MV Mean GR. 2mmHg A wave 0.01m/s MV Peak GR. 4mmHg E/A ratio 88.0 2D MVA cm2 DECEL Time 93ms PRESS 1/2 Time ms Aortic Valve Aortic Valve Aortic Stenosis LVOT Diameter 2.7 (1.8-2.4cm) Doppler ALEJO cm2 Pulmonic Valve V2 1.02m/s Other Information Technically limited study due to body habitus.patient position. pt stting up breathing shallow Conclusion DILATED ALL CARDIAC CHAMBERS GLOBAL LV AND RV HYPOKINESIS LV EF IS 25% AND IS MODERATELY REDUCED NORMAL VALVES NO EFFUSION STUDY CONSISTENT WITH DILATED CARDIOMYOPATHY MODERATE DEGREE SYSTOLIC LV DYSFUNCTION SIGNED BY: CLARKE JONES MD SIGNED DATE/TIME: 12/31/24 0031 Condition at Discharge: Stable Final Diagnosis/Problems List Severe CAD/cardiomyopathy, morbid obesity, ckd 3 Discharge Disposition: Home Discharge Instruct/Medications Diet: Consistent carbohydrate, Cardiac 2g Na,low cholest Activity: No Restrictions, As Tolerated Follow Up/Referral: 2 weeks for myocardial viability study and referral to Cardiac surgeon as appropriate. Medications: To continue as prescribed and home medications New Medications: Hydralazine Hcl (Hydralazine Hcl) 50 Mg Tab 1 TAB PO BID, #90 TAB 1 Refill Aspirin (Aspir-Low) 81 Mg Tab 81 MG PO DAILY, #90 TAB Clopidogrel Bisulfate (Clopidogrel) 75 Mg Tab 75 MG PO DAILY, #90 TAB 1 Refill Changed Medications: Furosemide (Furosemide) 40 Mg Tab 1 TAB PO BID, #60 TAB 1 Refill (Changed from: DAILY; 30; Refills: 5) Continued Medications: Allopurinol (Allopurinol) 300 Mg Tab 300 MG PO DAILY for 30 Days, MG Atorvastatin Calcium (Atorvastatin Calcium) 40 Mg Tab 1 TAB PO DAILY, #30 TAB 5 Refills Carvedilol (Carvedilol) 3.125 Mg Tab 2 TAB PO BID, #60 TAB 3 Refills Famotidine (Pepcid Tablet) 20 Mg Tb 1 TAB PO DAILY, #60 TAB 5 Refills Levothyroxine Sodium (Levothyroxine Sodium) 50 Mcg Tab 50 MCG PO QAM for 30 Days, MCG Magnesium Hydroxide (Milk Of Magnesia Oral Suspension) 30 Ml Ss 30 ML PO DAILY PRN, #7 DOSE Pantoprazole Sodium Sesquihydr (Pantoprazole Sodium) 40 Mg Tab 40 MG PO BID, #60 TAB Pravastatin Sodium (Pravachol Tablet) 20 Mg Tb 40 MG PO DAILY, #30 TAB Ursodiol (Ursodiol) 500 Mg Tab 1000 MG PO BIDBRS, #120 TAB 1 Refill Discontinued Medications: Amlodipine Besylate (Amlodipine Besylate) 10 Mg Tab 1 TAB PO DAILY, #30 TAB 5 Refills Carvedilol (Coreg) 3.125 Mg Tab 3.125 MG PO Q12HR, #60 TAB Lisinopril (Lisinopril) 20 Mg Tab 1 TAB PO DAILY, #30 TAB 5 Refills Discharge Statement: "Patient was advised to return to the ER or call 911 if any headaches, dizziness, shortness of breath, chest pain, abdominal pain, bleeding, fevers, or worsening of medical condition. Patient was counseled about treatment plan, medications, possible side effects, patientverbalized understanding. All questions were answered to the best of my ability. This discharge took greater then 30 minutes in planning, reviewing documentation, counseling the patient, and discussing with other team members." ASSESSMENT ASSESSMENT Assessment Severe CAD/cardiomyopathy, morbid obesity, ckd 3 UMESH THOMPSON MD Jan 01, 2025 11:42
[2025-01-02 01:00] VITALS: BP 137/82; PULSE 65; RESP 17; TEMP 97.4; O2SAT 98
[2025-01-02 05:00] VITALS: BP 126/87; PULSE 53; RESP 16; TEMP 97.6; O2SAT 99
[2025-01-02 07:45] LABS: Anion Gap 10 (5-15); Carbon Dioxide 24 mmol/L (20-31); Potassium 4.4 mmol/L (3.5-5.1); Sodium 142 mmol/L (136-145)
[2025-01-02 07:51] LABS: BUN/Creatinine Ratio 24.1 (10.0-20.0); Blood Urea Nitrogen 39 mg/dL (9-23); Calcium 10.8 mg/dL (8.7-10.4); Chloride 108 mmol/L (98-107); Glucose 117 mg/dL (74-106)
[2025-01-02 08:00] VITALS: PULSE 64; PULSE 74
[2025-01-02 09:00] VITALS: BP 141/87; PULSE 83; RESP 20; TEMP 97.4; O2SAT 99
--- NOTE | 2025-01-02 10:09 | DVHPN2 ---
Progress Note Date Seen: Jan 02, 2025 Medical Necessity Reason Pt with a Central, PICC or Fol: No Subjective Patient reports: No new complaints Objective vital signs Vital Sign Date Time Temp Pulse Resp B/P (MAP) Pulse Ox O2 Delivery O2 Flow Rate FiO2 01/02/25 09:51 141/87 01/02/25 09:50 83 01/02/25 09:00 97.4 20 99 97.4 01/01/25 20:00 Room Air* 0 21 Total Intake and Output 01/01/25 01/01/25 01/02/25 15:00 23:00 07:00 Intake Total 600 ml 1000 ml Output Total 1600 ml Balance -1000 ml 1000 ml medications Current Medications Medications Dose Ordered Sig/Elaine Route Start Time Stop Time Status Last Admin Dose Admin Nitroglycerin 0.4 mg Q5MINP PRN SL 12/28/24 08:45 Ondansetron HCl 4 mg Q4HPRN PRN IV 12/28/24 09:00 Acetaminophen 650 mg Q4HP PRN PO 12/28/24 09:00 12/31/24 05:44 650 MG Carvedilol 6.25 mg Q12HR PO 12/28/24 22:00 01/02/25 09:50 6.25 MG Aspirin 81 mg DAILY PO 12/29/24 10:00 01/02/25 09:51 81 MG Levothyroxine Sodium 50 mcg QAM PO 12/29/24 07:00 01/02/25 06:12 50 MCG Atorvastatin Calcium 40 mg HS PO 12/28/24 22:00 01/01/25 23:46 40 MG Hydralazine HCl 10 mg Q2HP PRN IV 12/29/24 17:15 Clopidogrel Bisulfate 75 mg DAILY PO 12/31/24 10:00 01/02/25 09:51 75 MG Hydralazine HCl 50 mg Q12HR PO 12/30/24 22:00 01/02/25 09:51 50 MG Acetaminophen/ Hydrocodone Bitart 1 tab Q4HPRN PRN PO 12/30/24 13:00 Hold 12/30/24 14:49 1 TAB Furosemide 40 mg BIDD PO 12/30/24 19:02 01/02/25 06:12 40 MG Acetaminophen/ Codeine Phosphate 1 tab Q4HP PRN PO 12/31/24 14:30 01/02/25 00:05 1 TAB Examination: GENERAL:Normal, CVS:Normal laboratory and microbiology Laboratory Tests 01/02/25 06:35 12/30/24 04:45 Test 01/02/25 06:35 Range/Units Serum Glucose 117 H 74-106 mg/dL Microbiology Date/Time Source Procedure Growth Status 12/29/24 00:07 Nose MRSA Screen - Final Complete Problem List/Assessment/Plan Problem List/Assessment/Plan Chronic kidney disease IIIb Congestive heart failure NSTEMI status post cardiac catheterization Morbid obesity Diabetes Gout s/p cardiac cath At the moment patient's renal function is at baseline Hold Entresto for another 1-2 days can start once renal function is stable Echocardiogram 25 ef Continue Lasix increase dose stable renal function rec outpatient renal clinic total care time 35mins Plan discussed with: Patient Dietary Evaluation Review Comments: Nutrition Recommendation 1) CCHO 75 + cardiac diet 2) Refer to CDE for weight management on DC 3) Monitor PO intake, lab values, wt trend Expected Outcomes/Goals: To meet >75% estimated needs Fu 3-5 days Total Time (mins): 35 ROHAN EATON MD Jan 02, 2025 10:09
== END 2025-01-02 12:00 | disposition home health service (06) | DRG 280 ==
LOC: ER 03:11 → EDBD 03:11 → OVERFLOW 08:44 → DOU IN ICU 23:30 → TELE-CENTR 12-30 16:50
PROVIDERS: ADMIT Hospitalist; ATTEND Hospitalist
PROC: 4A023N7 Measurement of Cardiac Sampling and Pressure, Left Heart, Percutaneous Approach (ICD-10-PCS; principal; 2024-12-29)
PROC: B211YZZ Fluoroscopy of Multiple Coronary Arteries using Other Contrast (ICD-10-PCS; 2024-12-29)
PROC: B215YZZ Fluoroscopy of Left Heart using Other Contrast (ICD-10-PCS; 2024-12-29)
DX: I21.4 Non-ST elevation (NSTEMI) myocardial infarction (principal); I50.23 Acute on chronic systolic (congestive) heart failure; J96.00 Acute respiratory failure, unspecified whether with hypoxia or hypercapnia; R65.11 Systemic inflammatory response syndrome (SIRS) of non-infectious origin with acute organ dysfunction; I13.0 Hypertensive heart and chronic kidney disease with heart failure and stage 1 through stage 4 chronic kidney disease, or unspecified chronic kidney disease; Z68.41 Body mass index [BMI] 40.0-44.9, adult; I25.10 Atherosclerotic heart disease of native coronary artery without angina pectoris; E66.01 Morbid (severe) obesity due to excess calories; E78.5 Hyperlipidemia, unspecified; I45.10 Unspecified right bundle-branch block; E07.9 Disorder of thyroid, unspecified; M10.9 Gout, unspecified; I25.5 Ischemic cardiomyopathy; N18.32 Chronic kidney disease, stage 3b; E11.22 Type 2 diabetes mellitus with diabetic chronic kidney disease; Z88.1 Allergy status to other antibiotic agents; Z79.899 Other long term (current) drug therapy; Z82.49 Family history of ischemic heart disease and other diseases of the circulatory system; Z83.3 Family history of diabetes mellitus; Z82.3 Family history of stroke; Z80.42 Family history of malignant neoplasm of prostate; Z87.11 Personal history of peptic ulcer disease; Z95.5 Presence of coronary angioplasty implant and graft
CPT/HCPCS: 36415; 71045; 80048; 80061; 81001; 83036; 83605; 83735; 83880; 84443; 84484; 85025; 85610; 85730; 86850; 86900; 86901; 87081; 93005; 93306; 93458; 96374; 97110; 97116; 97163; 97530; 99152; 99291; G0378; J2250; J2470; J2543; Q9967